=== PATIENT | female | born 1980 | race Caucasian/White ===

== ENCOUNTER → 2016-10-27 | Outpatient (CLI) | payer MEDICAID ==
--- NOTE | 2016-11-03 09:46 | MR ---
EXAMINATION TYPE: MR knee RT wo con DATE OF EXAM: 10/27/2016 4:30 PM COMPARISON: Right knee x-ray October 12, 2016 HISTORY: Rt knee pain x 1-2 months, noticed while running TECHNIQUE: Multiplanar, multisequence imaging of the right knee is performed without IV contrast. FINDINGS: The anterior and posterior cruciate ligaments are intact. The collateral ligaments are intact. Joint spaces are fairly normal. No significant spurring is seen. Bone marrow signal intensity is maintained . Articular cartilage is preserved. There is no sign of a fracture. There is no significant suprapate llar joint effusion. The medial and lateral menisci appear grossly intact. There is some artifact at level of posterior ho rn of medial meniscus believed to be causing some increased signal on sagittal images this is not rep roduced on additional sequences. Extensor ligaments are intact. No popliteal cyst is noted. The remai nder of exam is unremarkable. IMPRESSION: No evidence of ligamentous or meniscal tear. No significant finding is seen to account for patient's symptoms.
== END | disposition home or self-care (01) ==
LOC: RADMRIMAIN 15:46
PROVIDERS: ATTEND Orthopaedic Surgery
DX: M25.561 Pain in right knee (principal)

== ENCOUNTER → 2018-08-22 | Outpatient (CLI) | payer MEDICAID ==
--- NOTE | 2018-08-23 06:02 | MR ---
EXAMINATION TYPE: MR knee RT wo con DATE OF EXAM: 08/22/2018 COMPARISON: Prior right knee MRI October 27, 2016. Outside right knee x-ray August 15, 2018. HISTORY: Rt knee pain per order. TECHNIQUE: Multiplanar, multisequence images of the knee is performed without IV contrast. FINDINGS: MEDIAL MENISCUS: Anterior and posterior horns are intact without tear. LATERAL MENISCUS: Anterior and posterior horns are intact without tear. CRUCIATE LIGAMENTS: The anterior and posterior cruciate ligaments are intact and unremarkable. COLLATERAL LIGAMENTS: The medial collateral ligament and lateral collateral ligament complex are inta ct and unremarkable. EXTENSOR MECHANISM: Visualized quadriceps and patellar tendons are intact. EFFUSION: No significant suprapatellar joint effusion. POPLITEAL CYST: No popliteal/cannon cyst. TRICOMPARTMENT SPACES: Mild narrowing patellofemoral compartment is redemonstrated. No significant s purring is seen. CARTILAGE: No significant chondromalacia patella. Tricompartment articular cartilage is preserved. BONE MARROW SIGNAL: Focal area of heterogeneous diminished T1 and increased T2 signal is seen distal medial femoral condyle central aspect without ossific fragmentation measuring roughly 7 mm transverse ly by 11 mm AP diameter coronal image 15 and sagittal image 12 new from prior. OTHER: No additional significant abnormality is appreciated. IMPRESSION: 1. No meniscal or ligamentous tear is seen. 2. New focal osteochondral injury distal medial femoral condyle without ossific fragmentation.
== END ==
LOC: RADMRIMAIN 15:46
PROVIDERS: ATTEND Orthopaedic Surgery
DX: S79.822A Other specified injuries of left thigh, initial encounter (principal)

== ENCOUNTER 2018-08-28 08:45 | Emergency (ER) | payer MEDICAID ==
[2018-08-28 08:59] VITALS: TEMP 97.6
[2018-08-28] MEDS ORDERED: SODIUM CHLORIDE 0.9% 1,000 ML IV STA ×2 (09:30)
[2018-08-28] MEDS ORDERED: hydrALAZINE HCL 20 MG/ML 1 ML VIAL IVP STA (09:30)
[2018-08-28 09:31] LABS: Glucose,Whole Blood 100 mg/dL (75-99)
[2018-08-28] MEDS ORDERED: ASPIRIN 81 MG PO STA (09:34)
--- NOTE | 2018-08-28 09:36 | ED ---
Dizziness HPI - General Source: patient, RN notes reviewed, old records reviewed Mode of arrival: ambulatory Limitations: no limitations <Yin Ahuja - Last Filed: 08/28/18 10:19> <Conner Argueta - Last Filed: 08/28/18 10:26> - General Chief Complaint: Syncope Stated Complaint: Syncope Time Seen by Provider: 08/28/18 09:02 - History of Present Illness Initial Comments: Patient is a 38-year-old female who presents emergency Department today with complaints of near syncopal episode. 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 Patient reports she was walking to morning meeting when she suddenly felt very dizzy lightheaded. Patient states that she feels very tingly over her lower extremities. She states that her legs felt weak and she was unable to walk. Patient states that she was sat in a wheelchair. Her blood pressure was taken and was noted to be elevated. Patient states she does not have history of high blood pressure. She has no significant past medical history. Patient states that she has no nausea or vomiting. She denies headache. She states that her left side of her face feels slightly tingly in her arms and legs feel somewhat weak. Last known well time was 8:30 AM. Patient states that she has no recent reasons for dehydration including nausea or vomiting. She has normal st ools and normal urination. She states that she is unable to get . (Yin Ahuja) - Related Data Home Medications Medication Instructions Recorded Confirmed Multivitamins, Thera [Multivitamin 1 tab PO DAILY 08/28/18 08/28/18 (formulary)] Omeprazole Magnesium [PriLOSEC OTC] 20 mg PO DAILY 08/28/18 08/28/18 Allergies Allergy/AdvReac Type Severity Reaction Status Date / Time No Known Allergies Allergy Verified 08/28/18 09:18 Review of Systems ROS Other: All systems not noted in ROS Statement are negative. <Yin Ahuja - Last Filed: 08/28/18 10:19> ROS Other: All systems not noted in ROS Statement are negative. <Conner Argueta - Last Filed: 08/28/18 10:26> ROS Statement: Those systems with pertinent positive or pertinent negative responses have been documented in the HPI. Past Medical History Past Medical History: GERD/Reflux History of Any Multi-Drug Resistant Organisms: None Reported Additional Past Surgical History / Comment(s): laparoscopy,hysteroscopy, D & C Past Anesthesia/Blood Transfusion Reactions: No Reported Reaction Past Psychological History: No Psychological Hx Reported Smoking Status: Never smoker Past Alcohol Use History: Occasional Past Drug Use History: None Reported <Yin Ahuja - Last Filed: 08/28/18 10:19> General Exam Limitations: no limitations General appearance: alert, in no apparent distress Head exam: Present: atraumatic, normocephalic, normal inspection Eye exam: Present: normal appearance, PERRL, EOMI. Absent: scleral icterus, conjunctival injection, periorbital swelling ENT exam: Present: normal exam Neck exam: Present: normal inspection. Absent: tenderness, meningismus, lymphadenopathy Respiratory exam: Present: normal lung sounds bilaterally. Absent: respiratory distress, wheezes, rales, rhonchi, stridor Cardiovascular Exam: Present: regular rate, normal rhythm, normal heart sounds. Absent: systolic murmur, diastolic murmur, rubs, gallop, clicks GI/Abdominal exam: Present: soft, normal bowel sounds. Absent: distended, tenderness, guarding, rebound, rigid Extremities exam: Present: normal inspection, full ROM, normal capillary refill. Absent: tenderness, pedal edema, joint swelling, calf tenderness Back exam: Present: normal inspection Neurological exam: Present: alert, oriented X3 Expanded Patient oriented to: Present: person, place, time Speech: Present: fluid speech Cranial nerves: EOM's Intact: Normal, Facial Sensation: Abnormal Left (Reports diminished left sided sensation) Cerebellar function: Heel to Lazo: Normal Upper motor neuron: Pronator Drift: Abnormal Left (Drift noted over Left ) Sensory exam: Upper Extremity Light Touch: Abnormal Left (Reports tingling se nsation), Lower Extremity Light Touch: Abnormal Left (Reports tingling sensation) Motor strength exam: RUE: 5, LUE: 5, RLE: 5, LLE: 4 Eye Response: (4) open spontaneously Motor Response: (6) obeys commands Verbal Response: (5) oriented Rolan Total: 15 Psychiatric exam: Present: normal affect, normal mood Skin exam: Present: warm, dry, intact, normal color. Absent: rash <Yin Ahuja - Last Filed: 08/28/18 10:19> - General Exam Comments Initial Comments: 30-year-old female. Alert and oriented 3. (Yin Ahuja) Course <Yin Ahuja - Last Filed: 08/28/18 10:19> Vital Signs 08/28/18 08/28/18 08/28/18 08:55 09:58 10:06 Temperature 97.6 F Pulse Rate 64 87 80 Respiratory 18 18 16 Rate Blood Pressure 185/78 199/114 183/105 O2 Sat by Pulse 100 98 98 Oximetry - Reevaluation(s) Reevaluation #1: 08/28/18 09:36 Would recognize patient's neurological weakness and deficits I a contacted Dr. Argueta. Patient is evaluated by Dr. Argueta code stroke initiated. (Yin Ahuja) Medical Decision Making - Lab Data Result diagrams: 08/28/18 09:15 08/28/18 09:15 - Radiology Data Radiology results: report reviewed <Yin Ahuja - Last Filed: 08/28/18 10:19> - Lab Data Result diagrams: 08/28/18 09:15 08/28/18 09:15 <Conner Argueta - Last Filed: 08/28/18 10:26> - Medical Decision Making 30-year-old female presents emergency department today with the nursing episode. She states that she felt dizzy lightheaded and her vision turned black. Valerie ent has minimal left-sided facial numbness. Patient states that she has minimal left arm drift and left leg drip. NIH is 2. Patient was initiated is a code stroke and I discussed the case with Dr. Argueta. Patient blood pressure is 185/88. She was given 10 mg of hydralazine. is given aspirin. Lab work was otherwise unremarkable. Patient will be transferred at this time to [facility] due to no neurologist interventions at this time. Dr. Argueta discussed the case with the accepting physician to [facility]. (Yin Ahuja) Patient was reevaluated by myself, Dr. Argueta prior to computed tomography scan. Patient had onset of symptoms at 8:30. Patient does have minimal drift left arm and left leg. NIH score by nursing at 2. Patient was sent for CAT scan a code stroke was called. Case was discussed with Dr. Fuentes with neural interventional. He agrees no TPA. He recommends transfer to [facility]. Case was discussed with Dr. Bolton at [facility], who will accept transfer. (Conner Argueta) - Lab Data Lab Results 08/28/18 08/28/18 08/28/18 Range/Units 09:15 09:15 09:15 WBC 5.6 (3.8-10.6) k/uL RBC 3.99 (3.80-5.40) m/uL Hgb 13.5 (11.4-16.0) gm/dL Hct 40.6 (34.0-46.0) % MCV 101.7 H (80.0-100.0) fL MCH 33.9 (25.0-35.0) pg MCHC 33.3 (31.0-37.0) g/dL RDW 12.0 (11.5-15.5) % Plt Count 307 (150-450) k/uL Neutrophils % 52 % Lymphocytes % 37 % Monocytes % 5 % Eosinophils % 4 % Basophils % 1 % Neutrophils # 2.9 (1.3-7.7) k/uL Lymphocytes # 2.0 (1.0-4.8) k/uL Monocytes # 0.3 (0-1.0) k/uL Eosinophils # 0.2 (0-0.7) k/uL Basophils # 0.1 (0-0.2) k/uL PT 10.8 (9.0-12.0) sec INR 1.0 (<1.2) APTT 26.5 (22.0-30.0) sec Sodium 137 (137-145) mmol/L Potassium 4.3 (3.5-5.1) mmol/L Chloride 104 (98-107) mmol/L Carbon Dioxide 25 (22-30) mmol/L Anion Gap 8 mmol/L BUN 19 H (7-17) mg/dL Creatinine 0.57 (0.52-1.04) mg/dL Est GFR (CKD-EPI)AfAm >90 (>60 ml/min/1.73 sqM) Est GFR (CKD-EPI)NonAf >90 (>60 ml/min/1.73 sqM) Glucose 94 (74-99) mg/dL POC Glucose (mg/dL) (75-99) mg/dL POC Glu Miller Head Wet Process ID Calcium 8.7 (8.4-10.2) mg/dL Total Bilirubin 0.8 (0.2-1.3) mg/dL AST 34 (14-36) U/L ALT 25 (9-52) U/L Alkaline Phosphatase 32 L (38-126) U/L Total Protein 7.6 (6.3-8.2) g/dL Albumin 4.4 (3.5-5.0) g/dL 08/28/18 Range/Units 09:29 WBC (3.8-10.6) k/uL RBC (3.80-5.40) m/uL Hgb (11.4-16.0) gm/dL Hct (34.0-46.0) % MCV (80.0-100.0) fL MCH (25.0-35.0) pg MCHC (31.0-37.0) g/dL RDW (11.5-15.5) % Plt Count (150-450) k/uL Neutrophils % % Lymphocytes % % Monocytes % % Eosinophils % % Basophils % % Neutrophils # (1.3-7.7) k/uL Lymphocytes # (1.0-4.8) k/uL Monocytes # (0-1.0) k/uL Eosinophils # (0-0.7) k/uL Basophils # (0-0.2) k/uL PT (9.0-12.0) sec INR (<1.2) APTT (22.0-30.0) sec Sodium (137-145) mmol/L Potassium (3.5-5.1) mmol/L Chloride (98-107) mmol/L Carbon Dioxide (22-30) mmol/L Anion Gap mmol/L BUN (7-17) mg/dL Creatinine (0.52-1.04) mg/dL Est GFR (CKD-EPI)AfAm (>60 ml/min/1.73 sqM) Est GFR (CKD-EPI)NonAf (>60 ml/min/1.73 sqM) Glucose (74-99) mg/dL POC Glucose (mg/dL) 100 H (75-99) mg/dL POC Glu Miller Head Wet Process ID Susanna [place] Calcium (8.4-10.2) mg/dL Total Bilirubin (0.2-1.3) mg/dL AST (14-36) U/L ALT (9-52) U/L Alkaline Phosphatase (38-126) U/L Total Protein (6.3-8.2) g/dL Albumin (3.5-5.0) g/dL 08/28/18 09:37 EKG performed at 922 shows normal sinus rhythm normal EKG. Ventricular rate 76 bpm. Intervals 126 ms. QS ration 80 ms. QT QTc is 380/436 ms. (Yin Ahuja) - Radiology Data CT of the brain without contrast shows no acute intracranial process at this time. (Yin Ahuja) Critical Care Time Critical Care Time: Yes Total Critical Care Time: 30 <Yin Ahuja - Last Filed: 08/28/18 10:19> Critical Care Time: Total 30 minutes of critical care time completed for initiation code stroke and transfer to intermediate care facility. (Yin Ahuja) Disposition Is patient prescribed a controlled substance at d/c from ED?: No Time of Disposition: 10:23 - Out of Hospital Transfer - Req. Specs Out of Hospital Transfer - Requested Specifics: Other Emergency Center ([facility]) <Yin Ahuja - Last Filed: 08/28/18 10:19> - Out of Hospital Transfer - Req. Specs Out of Hospital Transfer - Requested Specifics: Other Emergency Center <Conner Argueta - Last Filed: 08/28/18 10:26> Clinical Impression: Hypertension, CVA (cerebral vascular accident) Disposition: OTHER INSTITUTION NOT DEFINED Condition: Stable Referrals: Helder Gan DO [Primary Care Provider] - 1-2 days
[2018-08-28 09:50] LABS: Basophils # (A) 0.1 k/uL (0-0.2); Basophils % (A) 1 %; Eosinophils # (A) 0.2 k/uL (0-0.7); Eosinophils % (A) 4 %; HCT 40.6 % (34.0-46.0); HGB 13.5 gm/dL (11.4-16.0); Lymphocytes % (A) 37 %; MCH 33.9 pg (25.0-35.0); MCHC 33.3 g/dL (31.0-37.0); MCV 101.7 fL (80.0-100.0); Mean Platelet Volume 6.6; Monocytes # (A) 0.3 k/uL (0-1.0); Monocytes % (A) 5 %; Neutrophils # (A) 2.9 k/uL (1.3-7.7); Neutrophils % (A) 52 %; Platelet Count 307 k/uL (150-450); RBC 3.99 m/uL (3.80-5.40); WBC 5.6 k/uL (3.8-10.6)
--- NOTE | 2018-08-28 09:57 | CT ---
EXAMINATION TYPE: CT brain wo con DATE OF EXAM: 08/28/2018 COMPARISON: None HISTORY: visual disturbance Unenhanced CT of the brain was performed. The ventricles, basal cisterns and sulci overlying the cerebral convexities demonstrate a normal appe arance. There is no evidence for intracranial hemorrhage or sulcal effacement. No mass effects are seen. Osseous calvarium is intact. If symptoms persist consider MRI as clinically warranted. IMPRESSION: 1. No acute intracranial process is seen at this time.
[2018-08-28 10:00] LABS: Albumin 4.4 g/dL (3.5-5.0); Anion Gap 8 mmol/L; Blood Urea Nitrogen 19 mg/dL (7-17); Calcium 8.7 mg/dL (8.4-10.2); Carbon Dioxide 25 mmol/L (22-30); Chloride 104 mmol/L (98-107); Glucose 94 mg/dL (74-99); Sodium 137 mmol/L (137-145); Total Bilirubin 0.8 mg/dL (0.2-1.3); Total Protein 7.6 g/dL (6.3-8.2)
[2018-08-28 10:05] LABS: ALT 25 U/L (9-52); AST 34 U/L (14-36); Alkaline Phosphatase 32 U/L (38-126); Potassium 4.3 mmol/L (3.5-5.1)
[2018-08-28 10:07] VITALS: RESP 16
[2018-08-28 10:07] LABS: Partial Thromboplastin Time 26.5 sec (22.0-30.0); Prothrombin Time 10.8 sec (9.0-12.0)
--- NOTE | 2018-08-28 10:26 | CT ---
EXAMINATION TYPE: CT angio head neck DATE OF EXAM: 08/28/2018 COMPARISON: None HISTORY: Syncope, visual disturbance, neuro deficits CT DLP: 1127.2 mGycm CONTRAST: Performed with IV Contrast, patient injected with 65 mL of Isovue 370. Combination Contrast CTA cervical carotids and [place] CTA cervical carotids with 3-D recons truction Contrast CTA of the cervical carotids was performed 3-D reconstruction imaging obtained at a separate workstation. Right carotid system: Mild plaque is seen of the right common carotid artery. There is mild plaque a lso noted at the carotid bulb and proximal ICA. No significant diameter reduction. ECA is patent. Right vertebral artery appears unremarkable. Left carotid system: Mild plaque is seen of the left common carotid artery. There is mild plaque als o noted at the carotid bulb and proximal ICA. No significant diameter reduction. ECA is patent. Lef t vertebral artery appears unremarkable. IMPRESSION: 1. No significant diameter reduction to account for the patient's symptoms. CTA [place] with 3-D reconstruction Contrast CTA of the [place] was performed 3-D reconstruction imaging obtained at a separate workstation. Vertebrobasilar system as well as intracranial portions of the internal carotid arteries and their ma carleen tributaries are patent. I do not see evidence for sizable aneurysm or vascular malformation. Pl ease note MRI provides greater sensitivity and specificity. Visualized brain appears grossly unremar kable. IMPRESSION: 1. No significant abnormality.
--- NOTE | 2018-08-28 10:34 | XR ---
EXAMINATION TYPE: XR chest 1V portable DATE OF EXAM: 08/28/2018 COMPARISON: Prior chest x-ray 03/11/2016 HISTORY: Pain TECHNIQUE: Single frontal view of the chest is obtained. FINDINGS: There is no focal air space opacity, pleural effusion, or pneumothorax seen. The cardiac silhouette size is within normal limits. The osseous structures are intact. There are overlying car diac leads. IMPRESSION: No acute process.
[2018-08-28 10:42] LABS: Appearance,Urine Clear (Clear); Bilirubin,Urine Negative (Negative); Blood,Urine Negative (Negative); Color,Urine Colorless; Glucose,Urine (UA) Negative (Negative); Ketones,Urine Negative (Negative); Leukocyte Esterase,Urine Negative (Negative); Nitrite,Urine Negative (Negative); Protein,Urine Negative (Negative); Specific Gravity,Urine 1.014 (1.001-1.035); Urobilinogen,Urine <2.0 mg/dL (<2.0)
[2018-08-28 11:11] VITALS: BP 165/89; PULSE 96
== END 2018-08-28 11:26 | disposition other institution (70) ==
LOC: EC 08:45
DX: I63.9 Cerebral infarction, unspecified (principal); R29.703 NIHSS score 3; I10 Essential (primary) hypertension; K21.9 Gastro-esophageal reflux disease without esophagitis; Z79.899 Other long term (current) drug therapy
CPT/HCPCS: 36415; 93005; 80053; 84484; 85025; 85610; 85730; 81003; 71045; 70496; 70450; 70498; 99291; 96374; 96361; J0360; Q9967

== ENCOUNTER → 2018-09-06 | Outpatient (CLI) | payer MEDICAID ==
--- NOTE | 2018-09-08 08:47 | EEG ---
ELECTROENCEPHALOGRAM REPORT PROCEDURE DATE: 09/06/2018. ELECTROENCEPHALOGRAM (EEG) REPORT: TECHNIQUE: A routine 18 channel EEG was performed with video using the 10/20 international placement system. HISTORY: Dizzy, blurred vision, disorientation. Blood pressure markedly elevated. CURRENT MEDICATIONS: Nexium, atorvastatin, multivitamin, aspirin. STUDY DURATION: 26 minutes. FINDINGS: BACKGROUND: The background activity consists of 8-9 hertz rhythmic waveforms symmetrically seen over both posterior quadrants. ACTIVATION: HYPERVENTILATION: Induced physiological slowing. PHOTIC STIMULATION: Symmetric driving seen. SLEEP: Drowsy. ABNORMALITIES: On rare occasion (four instances), low-voltage sharp waves were seen over the left frontotemporal region with adequate potentiality, F7-T3. IMPRESSION: Potentially abnormal EEG. The reason this EEG is listed as potentially abnormal is that on rare occasion sharp waves were seen over the left frontotemporal region. These findings can be seen with the presence of an epileptiform focus involving the corresponding region. No seizures were recorded. Clinical correlation is recommended. MMODL / IJN: [id number] /
== END | disposition home or self-care (01) ==
LOC: NEUROMAIN 11:06
PROVIDERS: ATTEND Psychiatry & Neurology Neurology
DX: R94.01 Abnormal electroencephalogram [EEG] (principal); R56.9 Unspecified convulsions
CPT/HCPCS: 95816

== ENCOUNTER → 2018-09-08 | Outpatient (CLI) | payer MEDICAID ==
--- NOTE | 2018-09-08 11:54 | MR ---
EXAMINATION TYPE: MR brain wo/w con DATE OF EXAM: 09/08/2018 COMPARISON: MR brain from outside institution 08/28/2017 HISTORY: arachnoid cyst TECHNIQUE: Multiplanar, multisequence images of the brain and brainstem is performed without and with IV contras t, utilizing 5 mL intravenous Gadavist . FINDINGS: Diffusion weighted images demonstrate no evidence of a recent infarct or other diffusion ab normality. The mild prominence of cerebrospinal fluid signal adjacent to the brainstem to the left o f midline anterior aspect of the left cerebellar hemisphere is stable, findings likely represent smal l arachnoid cyst versus developmental abnormality as previously described. There is no significant wh ite matter signal abnormality. The ventricular system and cisternal spaces are normal in size and ap pearance. The brain volume is age appropriate. Midline structures demonstrate normal morphology. The craniocervical junction appears within normal limits. Post contrast images demonstrate no abnormal enhancement. The dural venous sinuses appear pa tent. The visualized sinuses are clear and the globes are intact. Mastoid air cells again show inflam matory change. IMPRESSION: Stable exam. No acute brain abnormality. Probable arachnoid cyst as described. Inflammato ry change left mastoid air cells
== END ==
LOC: RADMRIMAIN 09:54
PROVIDERS: ATTEND Psychiatry & Neurology Neurology
DX: R94.02 Abnormal brain scan (principal)
CPT/HCPCS: 70553; A9585

== ENCOUNTER → 2018-12-27 | Outpatient (CLI) | payer MEDICAID ==
[2018-12-27 17:47] LABS: Anion Gap 9.3 mmol/L (4.00-12.00); BUN/Creat Ratio 18.89 Ratio (12.00-20.00); Calcium 9.3 mg/dL (8.7-10.3); Carbon Dioxide 24.7 mmol/L (21.6-31.8); LDL Cholesterol,Calculated 68.6 mg/dL (0.0-131.0); VLDL Calculation 10.4 mg/dL (5.00-40.00)
== END | disposition home or self-care (01) ==
LOC: LABWHC1 08:05
PROVIDERS: ATTEND Internal Medicine
DX: I10 Essential (primary) hypertension (principal); E78.5 Hyperlipidemia, unspecified
CPT/HCPCS: 36415; 80048; 80061

== ENCOUNTER → 2020-04-23 | Outpatient (CLI) | payer MEDICAID ==
--- NOTE | 2020-04-23 11:46 | MR ---
EXAMINATION TYPE: MR knee RT wo con DATE OF EXAM: 04/23/2020 COMPARISON: Prior MRI right knee August 22, 2018 and older study 2017 HISTORY: R knee pain TECHNIQUE: Multiplanar, multisequence imaging of the right knee is performed without IV contrast. FINDINGS: MEDIAL MENISCUS: Posterior horn shows oblique faint signal seen best sagittal image 9 with some frayi ng of the posterior margin of the posterior horn, this appears to extend to inferior articular surfac e consistent suspicious for oblique full-thickness tear. Anterior horn is intact. LATERAL MENISCUS: Anterior and posterior horns are intact without tear. CRUCIATE LIGAMENTS: The anterior and posterior cruciate ligaments are intact and unremarkable. COLLATERAL LIGAMENTS: The medial collateral ligament and lateral collateral ligament complex are inta ct and unremarkable. EXTENSOR MECHANISM: Visualized quadriceps and patellar tendons are intact. EFFUSION: No significant suprapatellar joint effusion. POPLITEAL CYST: No popliteal/cannon cyst. TRICOMPARTMENT SPACES: Tricompartmental joint spaces are preserved. No significant spurring. CARTILAGE: Tricompartment articular cartilage maintained. BONE MARROW SIGNAL: Interval resolution of the small focus of diminished T1 and increased T2 signal c entered in the slight lateral central aspect of the distal medial femoral condyle at the articular pearce rface. Finding likely reflects resolved bone marrow subchondral edema or contusion injury. OTHER: No additional significant abnormality is appreciated. IMPRESSION: New subtle full-thickness oblique tear in the posterior horn medial meniscus otherwise fa irly unremarkable study. Case discussed with orthopedic surgeon at time of dictation.
== END | disposition home or self-care (01) ==
LOC: RADMRIMAIN 06:10
PROVIDERS: ATTEND Orthopaedic Surgery
DX: S83.241A Other tear of medial meniscus, current injury, right knee, initial encounter (principal)

== ENCOUNTER 2020-04-30 08:16 | Day surgery (SDC) | payer MEDICAID ==
[2020-04-29 15:38] VITALS: BMI 22.4
--- NOTE | 2020-04-29 16:49 | HP ---
HISTORY AND PHYSICAL DATE OF SURGERY: 04/30/2020 Renee Syed is a 39-year-old patient seen with progressive right knee pain, consistent with symptomatic meniscal tear. We discussed options for treatment, she elected to proceed with right knee arthroscopy. Consent regarding the procedure was obtained. PAST MEDICAL HISTORY: Gastroesophageal reflux disease, hypertension. PAST SURGICAL HISTORY: D and C, hysteroscopy, laparoscopy. DAILY MEDICATIONS: Nexium, amlodipine, aspirin. ALLERGIES: None. SOCIAL HISTORY: She denies current tobacco use. PHYSICAL EVALUATION OF THE RIGHT KNEE: Range of motion is 0-130. There is a mild effusion present. She is tender along the medial joint line, positive medial Paris's. Her ligaments are stable. Hip rotation is without pain. Distal neurovascular exam is intact. RADIOGRAPHS OF THE RIGHT KNEE: Revealed mild osteoarthritic changes. MRI of the right knee revealed a medial meniscal tear. IMPRESSION: 1. Internal derangement, right knee with medial meniscal tear. 2. Hypertension. 3. Gastroesophageal reflux disease. PLAN: Right knee arthroscopy with partial meniscectomy and debridement. MMODL / IJN: [id number] /
[~2020-04-30 08:16] MED LIST: LIDOCAINE 1% (10MG/ML) FOR IV START INTRADERMA PRN
[2020-04-30] MEDS ORDERED: ONDANSETRON 4 MG/2 ML VIAL ONE (08:49)
[2020-04-30] MEDS ORDERED: LIDOCAINE 1% (10MG/ML) FOR IV START INTRADERMA ONE (08:50)
[2020-04-30] MEDS ORDERED: MIDAZOLAM 2 MG/2 ML VIAL IV ONE (09:00)
[2020-04-30] MEDS: LACTATED RINGERS 1,000 ML IV SCH ×2 (09:00→12:11)
[2020-04-30] MEDS ORDERED: DEXAMETHASONE SOD PHOSPHATE 4 MG/ML 1 ML VIAL IV ONE (09:01)
[2020-04-30 09:04] LABS: Basophils # (A) 0.1 k/uL (0-0.2); Basophils % (A) 1 %; Eosinophils # (A) 0.2 k/uL (0-0.7); Eosinophils % (A) 3 %; HCT 39.7 % (34.0-46.0); HGB 13.8 gm/dL (11.4-16.0); Lymphocytes # (A) 1.4 k/uL (1.0-4.8); Lymphocytes % (A) 28 %; MCH 34.8 pg (25.0-35.0); MCHC 34.7 g/dL (31.0-37.0); MCV 100.3 fL (80.0-100.0); Mean Platelet Volume 6.9; Monocytes # (A) 0.2 k/uL (0-1.0); Monocytes % (A) 4 %; Neutrophils % (A) 61 %; Platelet Count 266 k/uL (150-450); RBC 3.96 m/uL (3.80-5.40); RDW 11.5 % (11.5-15.5)
[2020-04-30] MEDS ORDERED: BUPIVACAINE (PF) 0.25% 30 ML VIAL SQ ONE ×2 (09:17→10:03)
[2020-04-30] MEDS ORDERED: MIDAZOLAM 2 MG/2 ML VIAL ONE (09:24)
[2020-04-30] MEDS ORDERED: fentaNYL (PF) 50 MCG/ML 2 ML AMP ONE (09:24)
[2020-04-30] MEDS ORDERED: KETOROLAC 15 MG/ML 1 ML VIAL ONE (09:24)
[2020-04-30] MEDS ORDERED: PROPOFOL 10 MG/ML 20 ML VIAL IV ONE (09:24)
[2020-04-30] MEDS ORDERED: LIDOCAINE 1% INJ 10MG/ML (20 ML MDV) ONE (09:24)
[2020-04-30] MEDS ORDERED: SUCCINYLCHOLINE CHLORIDE 100 MG/5 ML SYR IV ONE (09:24)
--- NOTE | 2020-04-30 10:25 | P.OP ---
Date of Procedure: 04/30/20 Preoperative Diagnosis: Internal derangement right knee Postoperative Diagnosis: 1. Tear medial meniscus right knee 2. Grade 3/4 chondromalacia medial femoral condyle right knee 3. Reactive synovitis medial, lateral and suprapatellar compartments right knee Procedure(s) Performed: 1. Arthroscopic partial medial meniscectomy right knee 2. Arthroscopic chondroplasty medial femoral condyle right knee 3. Arthroscopic microfracture medial femoral condyle right knee 4. Arthroscopic partial synovectomy medial, lateral and suprapatellar compartments right knee Anesthesia: MARISAA, local Surgeon: Bong Mccullough Estimated Blood Loss (ml): 7 Pathology: none sent Condition: stable Disposition: PACU Indications for Procedure: 39-year-old patient seen with right knee pain. After treatment options were discussed with her, she elected to proceed with arthroscopy. Operative Findings: See description of procedure Description of Procedure: Patient was taken to the operative suite. Patient underwent a general anesthetic by the department of anesthesia. Patient was given preoperative antibiotics. The right lower extremity was placed in a well-padded arthroscopic leg jeffers. The right leg was prepped and draped in the normal sterile orthopedic fashion. A lateral parapatellar and suprapatellar incision was made. Trochars were inserted. Arthroscopy was initiated. Suprapatellar pouch revealed diffuse thick reactive synovitis. The patellofemoral joint appeared to articulate congruently. There as grade 1 chondromalacia of the patella diffusely with no osteochondral tears present. The scope was guided into the medial gutter. No loose bodies or plica were identified. The scope was then guided into the medial compartment. A medial parapatellar incision was made. Trocar inserted followed by probe. There was a radial tear as well as a cleavage tear involving the posterior horn medial meniscus. There were areas of grade 3/4 chondromalacia weightbearing surface medial femoral condyle with osteochondral flap tears present. There was thick reactive synovitis anteriorly. I performed a partial medial meniscectomy getting down to stable meniscal tissue. I performed a chondroplasty of the medial femoral condyle getting down to stable osteochondral tissue. I performed a partial synovectomy decompressing the reactive synovitis anteriorly. The residual meniscus was probed and found to be stable. There was good decompression synovitis. The residual osteochondral surface of the medial femoral condyle was probed and found be stable. There was a central area of exposed bone. I introduced a roseanna rofracture awl perform a microfracture to that area Scope and probe were then guided into the intercondylar notch. Cruciates were identified, probed and found to be stable. The scope and probe were then guided into lateral compartment. The lateral meniscus was probed and found to be stable. There was some mild grade 1 chondromalacia diffusely about the lateral compartment. There was thick reactive synovitis anteriorly. I introduced a motorized shaver and performed a partial synovectomy. There was good decompression synovitis. The scope was in guided back into the suprapatellar compartment. I introduced a motorized shaver into the super patellar compartment. I debrided some piecemeal fragments of meniscus I encountered. I performed a partial synovectomy. Shaver was removed. There was good decompression synovitis. I took one more look on the entire knee, no residual debris. Instruments were now removed from the joint. The joint was infiltrated with .25% Marcaine. Steri-Strips were applied to the portal sites. Sterile dressings were applied. The patient was placed into a MARTIN hose. No tourniquet was utilized. The patient was awakened, transferred to a bed and taken to recovery stable satisfactory condition.
[2020-04-30 10:28] VITALS: TEMP 96.8
[2020-04-30] MEDS ORDERED: HYDROcodone/APAP 5-325MG 1 EACH TAB ONE (12:02)
[2020-04-30] MEDS ORDERED: HYDROcodone/APAP 5-325MG 1 EACH TAB PO ONE (12:07)
[2020-04-30 13:19] VITALS: BP 130/80; PULSE 66; RESP 18
== END 2020-04-30 13:05 | disposition home or self-care (01) ==
LOC: OR 08:16
PROVIDERS: ATTEND Orthopaedic Surgery
DX: M23.221 Derangement of posterior horn of medial meniscus due to old tear or injury, right knee (principal); M94.261 Chondromalacia, right knee; M65.861 Other synovitis and tenosynovitis, right lower leg; M22.41 Chondromalacia patellae, right knee; M17.11 Unilateral primary osteoarthritis, right knee; K21.9 Gastro-esophageal reflux disease without esophagitis; I10 Essential (primary) hypertension; Z98.890 Other specified postprocedural states; Z79.899 Other long term (current) drug therapy; Z79.82 Long term (current) use of aspirin; Z79.1 Long term (current) use of non-steroidal anti-inflammatories (NSAID)
CPT/HCPCS: 81025; 80051; 85025; 29881; 29879; J2250; J1100; J2405; J0690; J2001; J3010; J1885; J0330; J2704

== ENCOUNTER → 2021-09-23 | Outpatient (CLI) | payer MEDICAID ==
--- NOTE | 2021-09-25 10:55 | MM ---
Reason for exam: screening (asymptomatic). Baseline mammogram. Physical Findings: A clinical breast exam by your physician is recommended on an annual basis and results should be correlated with mammographic findings. MG 3D Screening Mammo W/Cad Bilateral CC and MLO view(s) were taken. The breast tissue is heterogeneously dense. This may lower the sensitivity of mammography. There is no discrete abnormality. Some benign regional punctate calcifications medial left breast. ASSESSMENT: Benign, BI-RAD 2 RECOMMENDATION: Routine screening mammogram of both breasts in 1 year. Patient should continue monthly self breast exams. A negative report should not preclude additional follow up of suspicious palpable abnormalities.
== END | disposition home or self-care (01) ==
LOC: RADMAMWWP 07:19
PROVIDERS: ATTEND Obstetrics & Gynecology
DX: Z12.31 Encounter for screening mammogram for malignant neoplasm of breast (principal)
CPT/HCPCS: 77063; 77067

== ENCOUNTER → 2021-09-30 | Outpatient (CLI) | payer MEDICAID ==
[2021-09-30 08:16] LABS: Appearance,Urine Cloudy (Clear); Bacteria,Urine Occasional /hpf; Bilirubin,Urine Negative (Negative); Blood,Urine Negative (Negative); Color,Urine Yellow; Glucose,Urine (UA) Negative (Negative); Ketones,Urine Negative (Negative); Leukocyte Esterase,Urine Negative (Negative); Mucus,Urine Many /hpf; Nitrite,Urine Negative (Negative); PH, Urine 5.5 (5.0-8.0); Protein,Urine Negative (Negative); RBC,Urine 1 /hpf (0-5); Specific Gravity,Urine 1.019 (1.001-1.035); Squamous Epithelial Cell,Urine 10 /hpf (0-4); Urobilinogen,Urine <2.0 mg/dL (<2.0); WBC,Urine 2 /hpf (0-5)
[2021-09-30 10:45] LABS: HCT 36.3 % (37.2-46.3); HGB 11.8 g/dL (12.0-15.0); MCH 33.1 pg (27.0-32.0); MCHC 32.5 g/dL (32.0-37.0); Mean Platelet Volume 9.7 fL (9.5-12.2); NRBC Per 100 WBC 0 /100 WBCS (0.0-0.0); Platelet Count 253 X 10*3/uL (140-440); RBC 3.56 X 10*6/uL (4.10-5.20); RDW 11.7 % (11.5-14.5); WBC 4.65 X 10*3/uL (4.50-10.00)
[2021-09-30 11:02] LABS: ALT 10 U/L (8-44); AST 24 U/L (13-35); African American GFR (CKD) 125.9 (60.0-200.0); Albumin 4.3 g/dL (3.8-4.9); Albumin/Globulin Ratio 1.72 (1.60-3.17); Alkaline Phosphatase 32 U/L (41-126); BUN/Creat Ratio 18.94 Ratio (12.00-20.00); Blood Urea Nitrogen 12.9 mg/dL (9.0-27.0); Calcium 8.8 mg/dL (8.7-10.3); Carbon Dioxide 25.3 mmol/L (20.0-27.5); Chloride 103 mmol/L (96-109); Chol/HDL Ratio 2.27 Ratio; Globulin 2.5 g/dL (1.6-3.3); Glucose 99 mg/dL (70-110); LDL Cholesterol,Calculated 78.2 mg/dL (0.0-131.0); Non-African American GFR(CKD) 108.6 (60.0-200.0); Potassium 3.7 mmol/L (3.5-5.5); Sodium 138 mmol/L (135-145); Total Protein 6.8 g/dL (6.2-8.2); VLDL Calculation 10.88 mg/dL (5.00-40.00)
== END | disposition home or self-care (01) ==
LOC: LABWHC1 07:10
PROVIDERS: ATTEND Internal Medicine
DX: I10 Essential (primary) hypertension (principal); E78.5 Hyperlipidemia, unspecified
CPT/HCPCS: 36415; 80053; 80061; 81001; 82088; 83835; 84244; 84443; 85027

== ENCOUNTER → 2021-10-05 | Outpatient (CLI) | payer MEDICAID ==
[2021-10-05 11:02] LABS: C Reactive Protein <0.30 mg/dL (0.00-0.80); Creatine Kinase 38 U/L (26-186)
[2021-10-05 11:11] LABS: Rheumatoid Factor, Qnt <10 IU/mL (0-15)
[2021-10-05 15:34] LABS: Cyclic Citrull Pep IgG Unit <0.5 U/mL; Cyclic Citrullinated Pep IgG NEGATIVE (NEGATIVE)
[2021-10-06 11:27] LABS: Angiotensin-1 Converting Enz. 5 U/L (8-52)
[2021-10-06 14:30] LABS: HLA B27 NEGATIVE
== END | disposition home or self-care (01) ==
LOC: LABWHC1 07:09
PROVIDERS: ATTEND Internal Medicine Rheumatology
DX: M13.0 Polyarthritis, unspecified (principal)
CPT/HCPCS: 36415; 82164; 82306; 82550; 83520; 84439; 84443; 84550; 85652; 86038; 86140; 86200; 86431; 86812

== ENCOUNTER → 2021-10-06 | Outpatient (CLI) | payer MEDICAID ==
--- NOTE | 2021-10-06 10:40 | XR ---
EXAM TYPE: LUMBAR SPINE X RAY SERIES COMPARISON: NONE HISTORY: Pain TECHNIQUE: 4 views are submitted. FINDINGS: Alignment is anatomic. The pedicles are intact. The transverse processes are intact. There is L5 b ilateral spondylolysis with grade 1 spondylolisthesis. IMPRESSION: 1. Bilateral spondylolysis L5 with grade 1 anterolisthesis. Suspect foraminal encroachment consider f ollow-up MRI.
--- NOTE | 2021-10-06 10:44 | XR ---
EXAMINATION TYPE: XR Hip Bilateral and AP pelvis DATE OF EXAM: 10/06/2021 COMPARISON: NONE HISTORY: Pain TECHNIQUE: A single AP view of the pelvis is obtained. Two views of the bilateral hip are obtained. FINDINGS: There is no acute fracture/dislocation evident in the pelvis. There is hypertrophic change of the acetabulum bilaterally. There is a faint calcification adjacent to the lateral margin the rig ht acetabulum which can be associated with chronic acetabular labral tear. SI joints symmetric. No evidence of erosive change or narrowing. No acute fracture or dislocation. No erosive changes. Mineralization maintained. IMPRESSION: 1. Acetabular hypertrophy correlate for femoral acetabular impingement. 2. Joint spaces preserved with no erosive changes. 3. Correlate for chronic right-sided acetabular labral tear.
--- NOTE | 2021-10-06 10:45 | XR ---
EXAMINATION TYPE: XR cervical spine comp DATE OF EXAM: 10/06/2021 COMPARISON: NONE HISTORY: Pain TECHNIQUE: Four views are submitted. FINDINGS: The odontoid is intact. There are no compression deformities. The prevertebral soft tissue structur es are within normal limits. Severe degenerative disc disease C6-C7 with moderate to severe changes C5-C6. Anterior spurring and posterior spondylosis at both levels. There is a grade 1 anterolisthesis of C4 relative to C5. Foraminal encroachment C5-6 and C6-C7 bilaterally. IMPRESSION: 1. Moderate to severe degenerative disc disease C5-C6 and C6-C7. Suspect foraminal encroachment parti cularly at C5-C6. 2. Grade 1 anterolisthesis C4 on C5.
--- NOTE | 2021-10-06 10:47 | XR ---
EXAMINATION TYPE: XR hand complete bilateral DATE OF EXAM: 10/06/2021 COMPARISON: NONE HISTORY: Pain TECHNIQUE: Three views are submitted. FINDINGS: The osseous structures are intact. There is no acute fracture or dislocation. Mineralization is normal. Mild narrowing of the joint on the right. There are no erosive changes. Tin y 1 mm punctate density adjacent first carpal metacarpal joint right and first digit. IMPRESSION: 1. No definite acute fracture or dislocation if symptoms persist, follow-up study in 7 to 10 days wo uld be suggested. 2. No erosive changes. There is mild arthropathy of the right first MCP joint. 3 punctate 1 mm densit y adjacent first carpal metacarpal joint in the right hand is too small characterize. Could be on the basis of previous trauma. Correlate with point tenderness.
== END | disposition home or self-care (01) ==
LOC: RADXRMAIN 09:36
PROVIDERS: ATTEND Internal Medicine Rheumatology
DX: M47.896 Other spondylosis, lumbar region (principal); M54.12 Radiculopathy, cervical region; M25.559 Pain in unspecified hip; M19.049 Primary osteoarthritis, unspecified hand
CPT/HCPCS: 72050; 72110; 73521

== ENCOUNTER → 2021-10-07 | Outpatient (CLI) | payer MEDICAID ==
[2021-10-07 11:02] LABS: Ferritin 28.6 ng/mL (10.0-291.0)
[2021-10-07 11:15] LABS: % Iron Saturation 26.07 (12.00-45.00)
== END | disposition home or self-care (01) ==
LOC: LABWHC1 08:17
PROVIDERS: ATTEND Internal Medicine
DX: I10 Essential (primary) hypertension (principal); D64.9 Anemia, unspecified
CPT/HCPCS: 36415; 82607; 82728; 82746; 83540; 83550; 83835

== ENCOUNTER → 2021-10-20 | Outpatient (CLI) | payer MEDICAID ==
--- NOTE | 2021-10-20 08:33 | US ---
EXAMINATION TYPE: US renal artery duplex complete DATE OF EXAM: 10/20/2021 COMPARISON: NONE CLINICAL HISTORY: I10 HYPERTENSION. HTN since 2019 MEASUREMENTS: RENAL SIZE: Rt Kidney: 9.2 x 3.8 x 3.9cm Lt Kidney: 9.1 x 4.9 x 4.1cm RESISTANCE INDEX Right: 0.66 Left: 0.65 RA/AO RATIO (< 3.5 ) Right: 1.6 Left: 1.5 RA VELOCITY ( < 180 cm/s) Right: 187.1cm/s Left: 171.6cm/s Limitations due to overlying bowel content. aorta and renals appear unremarkable. right renal artery velocities appears slightly elevated. Slightly suboptimal study. Kidney size is symmetric and measure lower limits of normal. No hydronephr osis seen bilaterally. Satisfactory phasicity and resistive indices in the bilateral renal arteries. Slight increased velocity in the right renal artery but there is increased velocity noted in the aort a. Findings favored product of uncontrolled hypertension. IMPRESSION: Slightly suboptimal study, no focal hemodynamically significant stenosis in either renal artery clearly identified.
== END | disposition home or self-care (01) ==
LOC: RADUSWWP 07:00
PROVIDERS: ATTEND Internal Medicine
DX: I10 Essential (primary) hypertension (principal)
CPT/HCPCS: 93975

== ENCOUNTER 2022-01-04 10:25 | Inpatient (IN) | payer MEDICAID ==
--- NOTE | 2022-01-04 10:56 | ED ---
Neuro HPI - General Chief Complaint: Neuro Symptoms/Deficit Stated Complaint: LT leg weakness Time Seen by Provider: 01/04/22 10:42 Source: patient, RN notes reviewed Mode of arrival: ambulatory Limitations: no limitations - History of Present Illness Is the patient presenting with stroke symptoms?: Yes Last Known Well Date: 01/04/22 Last Known Well Time: 07:00 Initial Comments: She is a 41-year-old female presents the emergency room at the direction of the spinal surgeons she was at work today in the OR suite when she reports that she has had worsening left limb weakness and notable foot drop with difficulty in ambulating. 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 She is currently taking blood pressure medication but denies any blood thinners including the use of aspirin. She denies any generalized symptoms, fevers, chills, shortness of breath, chest pain, headache or dizziness. In addition to her CVA/TIA and hypertension history she also has a history of GERD. With the exception of her left lower limb symptoms she denies any other complaints or concerns at this time. - Related Data Home Medications: Home Medications Medication Instructions Recorded Confirmed Esomeprazole Magnesium [NexIUM] 20 mg PO HS 04/29/20 04/30/20 Ibuprofen 400 mg PO DAILY PRN 04/29/20 04/30/20 Naproxen Sodium [Aleve] 220 mg PO BID PRN 04/29/20 04/30/20 amLODIPine BESYLATE/BENAZEPRIL 1 each PO HS 04/29/20 04/30/20 [amLODIPine BESYLATE/BENAZEPRIL 5-10 MG] Previous Rx's Medication Instructions Recorded Hydrocodone/Acetaminophen [[place] 1 each PO Q6HR PRN #28 tab 04/30/20 5-325] Allergies/Adverse Reactions: Allergies Allergy/AdvReac Type Severity Reaction Status Date / Time No Known Allergies Allergy Verified 01/04/22 10:39 Review of Systems ROS Statement: Those systems with pertinent positive or pertinent negative responses have been documented in the HPI. ROS Other: All systems not noted in ROS Statement are negative. General Exam Limitations: no limitations General appearance: alert, in no apparent distress Head exam: Present: atraumatic, normocephalic, normal inspection Eye exam: Present: normal appearance, PERRL, EOMI. Absent: scleral icterus, conjunctival injection, periorbital swelling ENT exam: Present: normal exam, mucous membranes moist Neck exam: Present: normal inspection. Absent: tenderness, meningismus, lymphadenopathy Respiratory exam: Absent: respiratory distress, accessory muscle use Extremities exam: Present: normal capillary refill. Absent: pedal edema, joint swelling Back exam: Present: normal inspection Neurological exam: Present: alert, oriented X3 Expanded Patient oriented to: Present: person, place, time Speech: Present: fluid speech Cranial nerves: EOM's Intact: Normal, Gag Reflex: Normal, Tongue Deviation: Normal, Nystagmus: Normal, Facial Sensation: Normal, Facial Palsy with Forehead Movement: Normal, Facial Palsy without Forehead Movement: Normal Cerebellar function: Finger to Nose: Normal, Heel to Lazo: Abnormal Left Motor strength exam: RUE: 5, LUE: 4, RLE: 5, LLE: 3 Eye Response: (4) open spontaneously Motor Response: (6) obeys commands Verbal Response: (5) oriented [place] Total: 15 Psychiatric exam: Present: normal affect, normal mood Skin exam: Present: warm, dry, intact, normal color. Absent: rash Stroke MDM - Lab Data Result diagrams: 01/04/22 11:02 01/04/22 11:02 Lab Results 01/04/22 01/04/22 01/04/22 Range/Units 10:55 11:02 11:02 WBC 5.5 (3.8-10.6) k/uL RBC 3.85 (3.80-5.40) m/uL Hgb 13.4 (11.4-16.0) gm/dL Hct 39.5 (34.0-46.0) % MCV 102.5 H (80.0-100.0) fL MCH 34.8 (25.0-35.0) pg MCHC 33.9 (31.0-37.0) g/dL RDW 12.4 (11.5-15.5) % Plt Count 306 (150-450) k/uL MPV 7.1 Neutrophils % 61 % Lymphocytes % 29 % Monocytes % 4 % Eosinophils % 3 % Basophils % 1 % Neutrophils # 3.4 (1.3-7.7) k/uL Lymphocytes # 1.6 (1.0-4.8) k/uL Monocytes # 0.2 (0-1.0) k/uL Eosinophils # 0.2 (0-0.7) k/uL Basophils # 0.1 (0-0.2) k/uL Macrocytosis Slight PT 10.4 (9.0-12.0) sec INR 1.0 (<1.2) APTT 21.5 L (22.0-30.0) sec Sodium (137-145) mmol/L Potassium (3.5-5.1) mmol/L Chloride (98-107) mmol/L Carbon Dioxide (22-30) mmol/L Anion Gap mmol/L BUN (7-17) mg/dL Creatinine (0.52-1.04) mg/dL Est GFR (CKD-EPI)AfAm (>60 ml/min/1.73 sqM) Est GFR (CKD-EPI)NonAf (>60 ml/min/1.73 sqM) Glucose (74-99) mg/dL POC Glucose (mg/dL) 108 (70-110) mg/dL POC Glu Broke Beater ID Duncan Rayan Calcium (8.4-10.2) mg/dL Total Bilirubin (0.2-1.3) mg/dL AST (14-36) U/L ALT (4-34) U/L Alkaline Phosphatase (38-126) U/L Total Protein (6.3-8.2) g/dL Albumin (3.5-5.0) g/dL 01/04/22 Range/Units 11:02 WBC (3.8-10.6) k/uL RBC (3.80-5.40) m/uL Hgb (11.4-16.0) gm/dL Hct (34.0-46.0) % MCV (80.0-100.0) fL MCH (25.0-35.0) pg MCHC (31.0-37.0) g/dL RDW (11.5-15.5) % Plt Count (150-450) k/uL MPV Neutrophils % % Lymphocytes % % Monocytes % % Eosinophils % % Basophils % % Neutrophils # (1.3-7.7) k/uL Lymphocytes # (1.0-4.8) k/uL Monocytes # (0-1.0) k/uL Eosinophils # (0-0.7) k/uL Basophils # (0-0.2) k/uL Macrocytosis PT (9.0-12.0) sec INR (<1.2) APTT (22.0-30.0) sec Sodium 137 (137-145) mmol/L Potassium 3.9 (3.5-5.1) mmol/L Chloride 106 (98-107) mmol/L Carbon Dioxide 24 (22-30) mmol/L Anion Gap 7 mmol/L BUN 20 H (7-17) mg/dL Creatinine 0.66 (0.52-1.04) mg/dL Est GFR (CKD-EPI)AfAm >90 (>60 ml/min/1.73 sqM) Est GFR (CKD-EPI)NonAf >90 (>60 ml/min/1.73 sqM) Glucose 107 H (74-99) mg/dL POC Glucose (mg/dL) (70-110) mg/dL POC Glu Broke Beater ID Calcium 9.1 (8.4-10.2) mg/dL Total Bilirubin 0.5 (0.2-1.3) mg/dL AST 26 (14-36) U/L ALT 12 (4-34) U/L Alkaline Phosphatase 50 (38-126) U/L Total Protein 7.8 (6.3-8.2) g/dL Albumin 4.8 (3.5-5.0) g/dL - NIH Stroke Scale 1a. Level of Consciousness: (0) alert 1b. LOC Questions: (0) answers correctly 1c. LOC Commands: (0) performs tasks correctly 2. Best Gaze: (0) normal 3. Visual: (0) no visual loss 4. Facial Palsy: (0) normal symmetrical movement 5a. Motor Arm Left: (0) no drift 5b. Motor Arm Right: (0) no drift 6a. Motor Leg Left: (2) some gravity effort 6b. Motor Leg Right: (0) no drift 7. Limb Ataxia: (1) present 1 limb 8. Sensory: (1) mild/moderate sensory loss 9. Best Language: (0) no aphasia 10. Dysarthria: (0) normal 11. Extinction/Inattention: (0) no abnormality - Thrombolytic Inclusion/Exclusion Thrombolytic Inclusion Criteria: Symptom Onset < 4.5 h, NIH Stroke Scale Deficit, Age 18 or Older, Glucose of 50-400mg/dl - Medical Decision Making Known CVA/TIA history with new onset of left-sided weakness at 7 AM today. High probability for stroke. Known onset of symptoms at 0700, Code alteplase called at 1051. CBC CMP PT/INR and UA ordered along with CT of brain without contrast for TPA protocol and CTA of brain and neck for Code stroke protocol. CTA head and neck shows no evidence of dissection of cervical internal carotid arteries or vertebral arteries are any evidence of significant stenosis at the carotid bifurcation. No evidence of high-grade stenosis and intracranial aneurysm. CT of the brain without contrast shows no acute intracranial processes. Lab stable Case discussed with Dr. Narvaez from [facility] advised no need for alteplase recommends admission for observation and neurology follow-up. Case discussed with Dr. Lofton from [facility] for admission for observation along with Dr. Anderson. IV fluids and aspirin 324mg administered. Left lower extremity symptoms persist without worsening or improvement. Will place observation admission orders. - Radiology Data Radiology results: report reviewed, image reviewed CT brain without contrast shows no acute processes. CTA head and neck impression no evidence of dissection of the cervical and terminal carotid arteries or vertebral arteries or any evidence of significant stenosis at the carotid bifurcation. No evidence of high-grade stenosis or intracranial aneurysm. Sinus rhythm, ventricular rate 70 bpm, NV interval 124 ms, QRS duration 86 ms, QT/QTC 387/408 ms, PRT axes 73, 66, 45. Past Medical History Past Medical History: CVA/TIA, GERD/Reflux, Hypertension Additional Past Medical History / Comment(s): "rt knee pain and it feels like it is going to give out", hx acute CVA 2019-no residual History of Any Multi-Drug Resistant Organisms: None Reported Additional Past Surgical History / Comment(s): laparoscopy,hysteroscopy, D & C Past Anesthesia/Blood Transfusion Reactions: No Reported Reaction Past Psychological History: No Psychological Hx Reported Smoking Status: Never smoker - Past Family History Mother Family Medical History: No Reported History Course Vital Signs 01/04/22 01/04/22 01/04/22 10:34 11:15 11:30 Temperature 98.1 F Pulse Rate 72 71 69 Respiratory 20 18 18 Rate Blood Pressure 140/85 132/84 123/80 O2 Sat by Pulse 100 98 99 Oximetry 01/04/22 01/04/22 01/04/22 11:45 12:00 12:15 Temperature Pulse Rate 71 85 78 Respiratory 18 18 18 Rate Blood Pressure 114/70 109/67 115/80 O2 Sat by Pulse 99 100 99 Oximetry Disposition Clinical Impression: Cerebrovascular accident (CVA) Disposition: ADMITTED IP TO THIS HOSP Condition: Stable Is patient prescribed a controlled substance at d/c from ED?: No Referrals: Gómez Saenz MD [Primary Care Provider] - 1-2 days Time of Disposition: 12:59
[2022-01-04 10:58] LABS: Glucose,Whole Blood 108 mg/dL (70-110)
[2022-01-04 11:12] LABS: Basophils # (A) 0.1 k/uL (0-0.2); Basophils % (A) 1 %; Eosinophils # (A) 0.2 k/uL (0-0.7); Eosinophils % (A) 3 %; HCT 39.5 % (34.0-46.0); HGB 13.4 gm/dL (11.4-16.0); Lymphocytes # (A) 1.6 k/uL (1.0-4.8); Lymphocytes % (A) 29 %; MCH 34.8 pg (25.0-35.0); MCHC 33.9 g/dL (31.0-37.0); MCV 102.5 fL (80.0-100.0); Macrocytosis Slight; Mean Platelet Volume 7.1; Monocytes # (A) 0.2 k/uL (0-1.0); Monocytes % (A) 4 %; Neutrophils # (A) 3.4 k/uL (1.3-7.7); Neutrophils % (A) 61 %; Platelet Count 306 k/uL (150-450); RBC 3.85 m/uL (3.80-5.40); RDW 12.4 % (11.5-15.5); WBC 5.5 k/uL (3.8-10.6)
--- NOTE | 2022-01-04 11:16 | CT ---
EXAMINATION TYPE: CT brain wo con for TPA CT DLP: 1090.6 mGycm, Automated exposure control for dose reduction was used. DATE OF EXAM: 01/04/2022 11:05 AM COMPARISON: 08/28/2018. CLINICAL INDICATION:Female, 41 years old with history of Neuro deficit, acute, stroke suspected, Left leg weakness. History of stroke. TECHNIQUE: Brain: Multiple axial CT images of the brain were obtained without IV contrast. FINDINGS: Brain: Extra-axial spaces: No abnormal extra-axial fluid collections. Ventricular system: Within normal limits Cerebral parenchyma: No acute intraparenchymal hemorrhage or mass effect. The jackson-white junction is well differentiated. Cerebellum: Unremarkable. Mass effect: No evidence of midline shift. Intracranial vasculature: unremarkable Soft tissues: Normal. Calvarium/osseous structures: No depressed skull fracture. Paranasal sinuses and mastoid air cells: Mild scattered paranasal sinus disease. Visualized orbits: Orbital contents are intact. IMPRESSION: No acute intracranial process.
[2022-01-04 11:27] LABS: ALT 12 U/L (4-34); AST 26 U/L (14-36); African American GFR (CKD) >90 (>60 ml/min/1.73 sqM); Albumin 4.8 g/dL (3.5-5.0); Alkaline Phosphatase 50 U/L (38-126); Anion Gap 7 mmol/L; Blood Urea Nitrogen 20 mg/dL (7-17); Calcium 9.1 mg/dL (8.4-10.2); Carbon Dioxide 24 mmol/L (22-30); Chloride 106 mmol/L (98-107); Glucose 107 mg/dL (74-99); Non-African American GFR(CKD) >90 (>60 ml/min/1.73 sqM); Potassium 3.9 mmol/L (3.5-5.1); Sodium 137 mmol/L (137-145); Total Bilirubin 0.5 mg/dL (0.2-1.3); Total Protein 7.8 g/dL (6.3-8.2)
[2022-01-04 11:29] LABS: Prothrombin Time 10.4 sec (9.0-12.0)
[2022-01-04 11:33] LABS: Partial Thromboplastin Time 21.5 sec (22.0-30.0)
--- NOTE | 2022-01-04 11:37 | CT ---
EXAMINATION TYPE: CODE STROKE: CTA head neck CT DLP: 365.7 mGycm, Automated exposure control for dose reduction was used. DATE OF EXAM: 01/04/2022 11:21 AM COMPARISON: CT brain same day. CLINICAL INDICATION:Female, 41 years old with history of LLE weakness; Left leg weakness. TECHNIQUE: Axially acquired helical CT angiogram of the head and neck was obtained with contrast. Axi al images are supplemented with 3D reconstructions [facility] criteria used. Contrast used:65ml mL of Isovue 370 with IV Contrast, Oral contrast used: None FINDINGS: CTA HEAD: No evidence of acute intracranial hemorrhage, mass effect, or midline shift. The ventricles, sulci, a nd cisterns are unremarkable. The visualized portions of the internal carotid arteries, middle cerebral arteries, anterior cerebral arteries, and posterior cerebral arteries are patent. The basilar and vertebral arteries are patent. CTA NECK: Right Carotid System: The common carotid artery and external carotid artery are patent. The carotid bifurcation demonstrate s no evidence of hemodynamically significant stenosis. The remaining portions of the internal carotid artery demonstrate normal size without significant narrowing. Left Carotid System: The common carotid artery and external carotid artery are patent. The carotid bifurcation demonstrate s no evidence of hemodynamically significant stenosis. The remaining portions of the internal carotid artery demonstrate normal size without significant narrowing. Vertebral arteries are patent without evidence hemodynamically significant stenosis. There is a three-vessel aortic arch. The origins of the great vessels are patent. No evidence of hemo dynamically significant stenosis. IMPRESSION: 1. No evidence of dissection of the cervical internal carotid arteries or vertebral arteries or any e vidence of significant stenosis at the carotid bifurcations. 2. No evidence of high-grade stenosis or intracranial aneurysm.
[2022-01-04] MEDS ORDERED: SODIUM CHLORIDE 0.9% 1,000 ML IV STA (12:01)
[2022-01-04] MEDS ORDERED: ASPIRIN 81 MG PO STA (12:01)
[2022-01-04] MEDS ORDERED: NALOXONE 0.4 MG/ML 1 ML VIAL IV PRN (12:59)
[2022-01-04] MEDS ORDERED: ACETAMINOPHEN TAB 325 MG TAB PO PRN (12:59)
[2022-01-04] MEDS ORDERED: ATORVASTATIN 80 MG TAB PO STA (13:57)
[2022-01-04] MEDS: CLOPIDOGREL 75 MG TAB PO SCH (14:14)
--- NOTE | 2022-01-04 14:25 | P.CNNES ---
History of Present Illness Consult date: 01/04/22 Requesting physician: Lin Wolf Reason for Consult: cva History of Present Illness: This is a 41-year-old woman history of stroke in 2019 without any residual deficits, hypertension who presented to our facility because of weakness over the left lower extremity. 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 She initially noticed that she was having left foot weakness. One of the physicians noticed that something was wrong so she was notified to come to the ED for evaluation. Patient stated she had a stroke in August 2018 and had weakness over the entire left side so she had to be transferred to [facility] since no neurologist at that time. She had work-up and was notified she had stroke. She was on ASA 81mg and Lipitor but stated she has been off medication since around COVID-19 pandemic since ran out of medication and her PCP retired. She had two miscarriages and last one was about 8 years ago. She tried IVF but unsuccessful. She denies of being on contraceptives. Her father had myocardial infarction in his 40's years-old and had stroke in his 50's years old. Some other workup in our facility consisted of: Initial MCV is 102.5 otherwise rest of the CBC with differential is unremarkable Serum glucose is 107 and the POC glucose is 108. BUN is 20 otherwise rest of chemistry panel is unremarkable CT of the head is reported as no acute intracranial process. I attempted to review the CT of the head but unable since the getting error message CT angiography of the head and neck was reported as no evidence of dissection of the cervical internal carotid arteries or vertebral arteries or evidence of significant stenosis at the carotid bifurcation. No evidence of high-grade s tenosis or intracranial aneurysm. EKG is reported as sinus rhythm. Normal EKG. Review of Systems Review of system: The 12 point system was reviewed and apparent positive and negative per HPI. Past Medical History Past Medical History: CVA/TIA, GERD/Reflux, Hypertension Additional Past Medical History / Comment(s): "rt knee pain and it feels like it is going to give out", hx acute CVA 2019-no residual History of Any Multi-Drug Resistant Organisms: None Reported Additional Past Surgical History / Comment(s): laparoscopy,hysteroscopy, D & C Past Anesthesia/Blood Transfusion Reactions: No Reported Reaction Past Psychological History: No Psychological Hx Reported Smoking Status: Never smoker - Past Family History Mother Family Medical History: No Reported History Medications and Allergies Home Medications Medication Instructions Recorded Confirmed Type Esomeprazole Magnesium [NexIUM] 20 mg PO HS 04/29/20 01/04/22 History amLODIPine BESYLATE/BENAZEPRIL 1 cap PO HS 04/29/20 01/04/22 History [amLODIPine BESYLATE/BENAZEPRIL 5-10 MG] Meloxicam [Mobic] 15 mg PO HS 01/04/22 01/04/22 History Allergies Allergy/AdvReac Type Severity Reaction Status Date / Time No Known Allergies Allergy Verified 01/04/22 13:55 Physical Examination - Vital Signs Vital Signs: Vital Signs Temp Pulse Resp BP Pulse Ox 01/04/22 12:45 75 18 123/77 97 01/04/22 12:15 78 18 115/80 99 01/04/22 12:00 85 18 109/67 100 01/04/22 11:45 71 18 114/70 99 01/04/22 11:30 69 18 123/80 99 01/04/22 11:15 71 18 132/84 98 01/04/22 10:34 98.1 F 72 20 140/85 100 Intake and Output 01/03/22 01/04/22 01/04/22 22:59 06:59 14:59 Other: Weight 49.4 kg GENERAL: The patient is lying in bed and is not in acute distress. CHEST: The heart rate is regular rate rhythm. No murmurs to auscultation. LUNG: Clear to auscultation bilaterally no wheezing noted throughout. Not labored breathing. ABDOMEN/GI: Bowel sounds present in all 4 quadrants. No tenderness to palpation throughout. NEUROLOGICAL: Higher mental function: The patient is awake, alert, oriented to self, place and time. Patient is following commands. No aphasia and no neglect. Cranial nerves: The pupils are round, equal and reactive to light and accommodation. Visual silva are full to confrontation throughout. Extraocular movement is intact no nystagmus is noted. Facial sensation is normal to touch throughout. The facial strength is normal throughout. Hearing is normal bilaterally to hand rub. Tongue is midline and moved [id number] without any difficulty. No dysarthria is noted. Shoulder shrug is normal bilaterally. Motor: The strength is left lower hip flexion is 4+ to 5-. Left ankle is 4. Otherwise 5 over 5 throughout. Normal tone and bulk. Cerebellum: Normal finger to nose bilaterally. Sensation: Sensation is mildy decreased over the left lower extremity to touch. Otherwise normal to touch throughout. Reflexes (right/left): 2+ throughout. Plantars are downgoing bilaterally. Results - Laboratory Findings CBC and BMP: 01/04/22 11:02 01/04/22 11:02 Abnormal Lab Findings: Abnormal Labs 01/04/22 01/04/22 01/04/22 11:02 11: 11:02 MCV 102.5 H APTT 21.5 L BUN 20 H Glucose 107 H Assessment and Plan Assessment: Acute ischemic stroke (Left lower extremity weakness and numbness). 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 But appears hypercoagulable. Had episode in 2019, 2 miscarriages, father had stroke at young age. History of stroke in 08/2018 (left sided weakness without residual) Hypertension GERD Medication Non-compliance (ASA and Liptor) Young stroke in father (in his 50's y/o and he had TX in his 40's) Plan: In the ED the patient was given aspirin 325 once. I'll start the patient on dual antiplatelet of aspirin 325 and Plavix 75 mg daily. I loaded the patient with Lipitor 80 mg once 1040 mg daily at bedtime. Ordered MRI of the brain urgently, 2-D echo with bubble study. Ordered TSH, MELISSA, antiDsDNA, antithrombin III, ESR, factor V Leiden, prothrombin 20 210 mutation, von Willebrand, lupus anticoagulant. I didn't order all the young stroke workup because of false-positive and recommended the rest of the young stroke workup to be ordered as an outpatient (unless hematology feels otherwise). Every [address] the patient on cardiac monitoring PT OT is consulted Consulted cardiology for possible EMY if 2D echo is normal and event monitor. Consulted hematology team for young stroke workup We'll defer the rest of medical management to primary team For DVT prophylaxis I started the patient on subcu heparin 5000 units every 12 hours The plan is discussed with the patient as well as ED team. Thank you for the consultation. Steven Villagomez M.D. Neuro[facility]hospital Time with Patient: Greater than 30
[2022-01-04 15:39] LABS: T4, Free (Free Thyroxine) 1.14 ng/dL (0.78-2.19)
[2022-01-04] MEDS: HEPARIN SODIUM,PORCINE/PF 5,000 UNIT/0.5 ML SYRINGE SQ SCH ×2 (16:38→23:24)
--- NOTE | 2022-01-04 18:57 | P.HPIM ---
History of Present Illness H&P Date: 01/04/22 Patient is a 41-year-old female with PMH of hypertension, CVA in 2019 with resolved left-sided weakness presents to the ED for left lower extremity weakness. Patient reports feeling heaviness in her left leg this morning while at work. 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 She denies any slurred speech or confusion. She denies any numbness/weakness/tingling of the extremities. She reports CVA in 2019 was worked at [employer]. She was discharged on aspirin and Lipitor but recently stopped during the COVID-19 pandemic. She denies any headache, lower extremity edema, nausea or vomiting, fever or chills, cough, chest pain, shor tness breath, palpitations, changes in urination or bowel habits. No changes in appetite or weight. She denies any numbness or tingling, dizziness. In the ED, her vital signs are stable. CBC showed MCV of 102.5. ESR was within normal limits. CMP showed BUN of 20, glucose of 107. TSH of 0.361 and FT4 of 1.14. CT brain was negative. CTA head and neck showed no evidence of high grade stenosis. Patient is admitted for a CVA workup. Review of systems was performed and is negative as above. General: [non toxic], [no distress], [appears at stated age] Derm: [warm], [dry] Head: [atraumatic], [normocephalic], [symmetric] Eyes: [EOMI], [no lid lag], [anicteric sclera] Mouth: [no lip lesion], [mucus membranes moist] Cardiovascular: [S1S2 reg], [no murmur] Lungs: [CTA bilateral], [no rhonchi, no rales] , [no accessory muscle use] Ext: [no gross muscle atrophy], [no edema], [no contractures] Neuro: [ CN II-XI grossly intact], [no focal neuro deficits except 4/5 in LLE] Psych: [Alert], [oriented], [appropriate affect] Assessment and Plan Left sided weakness with history of CVA Hypertension Macrocytosis Elevated BUN Low TSH Neurology has been consulted for further management of this patient. Patient started on ASA, Plavix and Lipitor. Telemetry monitoring. Neurochecks. MRI brain and Echocardiogram ordered. Carotid doppler. Lipid panel and A1c ordered. PT and OT consulted. Restart amlodipine/benazepril after 24H. Monitor vitals, adjust medications as necessary. B12 and Folate ordered. Free T4 within normal limits. Repeat in 6 weeks. Heparin for DVT prophylaxis. decision maker if she cant make decisions for herself. Patient would like to be FULL CODE. Past Medical History Past Medical History: CVA/TIA, GERD/Reflux, Hypertension Additional Past Medical History / Comment(s): ", hx acute CVA 2019-no residual degenerative arthritis. History of Any Multi-Drug Resistant Organisms: None Reported Past Surgical History: Orthopedic Surgery Additional Past Surgical History / Comment(s): laparoscopy,hysteroscopy, D & C rt knee arthoscopy. Past Anesthesia/Blood Transfusion Reactions: No Reported Reaction Past Psychological History: No Psychological Hx Reported Smoking Status: Never smoker Past Alcohol Use History: Occasional Past Drug Use History: None Reported - Past Family History Mother Family Medical History: No Reported History Father Family Medical History: CVA/TIA, Hypertension, Myocardial Infarction ([place]) Medications and Allergies Home Medications Medication Instructions Recorded Confirmed Type Esomeprazole Magnesium [NexIUM] 20 mg PO HS 04/29/20 01/04/22 History amLODIPine BESYLATE/BENAZEPRIL 1 cap PO HS 04/29/20 01/04/22 History [amLODIPine BESYLATE/BENAZEPRIL 5-10 MG] Meloxicam [Mobic] 15 mg PO HS 01/04/22 01/04/22 History Allergies Allergy/AdvReac Type Severity Reaction Status Date / Time No Known Allergies Allergy Verified 01/04/22 13:55 Physical Exam Vitals: Vital Signs Temp Pulse Pulse Resp BP BP Pulse Ox 01/04/22 16:41 75 16 127/66 99 01/04/22 16:15 72 18 125/75 98 01/04/22 15:15 77 18 122/80 98 01/04/22 14:45 70 18 118/73 98 01/04/22 14:15 71 18 120/79 100 01/04/22 13:45 72 18 110/75 98 01/04/22 13:15 75 18 118/74 98 01/04/22 12:45 75 18 123/77 97 01/04/22 12:15 72 18 114/72 98 01/04/22 12:00 85 18 109/67 100 01/04/22 11:45 71 18 114/70 99 01/04/22 11:30 69 18 123/80 99 01/04/22 11:15 71 18 132/84 98 01/04/22 10:34 98.1 F 72 20 140/85 100 Intake and Output 01/04/22 01/04/22 01/04/22 06:59 14:59 22:59 Intake Total 240 Balance 240 Intake: Oral 240 Other: Weight 49.4 kg 49.4 kg Results CBC & Chem 7: 01/04/22 11:02 01/04/22 11:02 Labs: Abnormal Lab Results - Last 24 Hours (Table) 01/04/22 01/04/22 01/04/22 Range/Units 11:02 11:02 11:02 MCV 102.5 H (80.0-100.0) fL APTT 21.5 L (22.0-30.0) sec BUN 20 H (7-17) mg/dL Glucose 107 H (74-99) mg/dL TSH (0.465-4.680) mIU/L 01/04/22 Range/Units 14:07 MCV (80.0-100.0) fL APTT (22.0-30.0) sec BUN (7-17) mg/dL Glucose (74-99) mg/dL TSH 0.361 L (0.465-4.680) mIU/L Thrombosis Risk Factor Assmnt - Choose All That Apply Each Factor Represents 1 point: Age 41-60 years Other Risk Factors: Yes Thrombosis Risk Factor Assessment Total Risk Factor Score: 1 Thrombosis Risk Factor Assessment Level: Low Risk
[2022-01-04] MEDS: PANTOPRAZOLE 40 MG TABLET PO SCH (19:36)
--- NOTE | 2022-01-04 21:14 | US ---
EXAMINATION TYPE: US carotid duplex BILAT DATE OF EXAM: 01/04/2022 COMPARISON: NONE CLINICAL HISTORY: CVA workup`. Exam done portable EXAM MEASUREMENTS: RIGHT: Peak Systolic Velocity (PSV) cm/sec ----- Right CCA: 84.2 ----- Right ICA: 132.0 ----- Right ECA: 91.1 ICA/CCA ratio: 1.6 RIGHT: End Diastole cm/sec ----- Right CCA: 27.0 ----- Right ICA: 55.0 ----- Right ECA: 17.8 LEFT: Peak Systolic Velocity (PSV) cm/sec ----- Left CCA: 91.0 ----- Left ICA: 115.1 ----- Left ECA: 86.4 ICA/CCA ratio: 1.3 LEFT: End Diastole cm/sec ----- Left CCA: 34.3 ----- Left ICA: 61.7 ----- Left ECA: 14.9 VERTEBRALS (direction of flow): Right Vertebral: Antegrade Left Vertebral: Antegrade Rhythm: Normal No significant stenosis IMPRESSION: There is antegrade flow in the vertebral arteries. The images and measurements suggest close to 0% st enosis in both internal carotid arteries. Criteria for Assigning % of Stenosis / Diameter reduction (Estimation based on the indirect measurements of the internal carotid artery velocities (ICA PSV). 1. Normal (no stenosis)=ICA PSV < 125 cm/s: ratio < 2.0: ICA EDV<40 cm/s. 2. Less than 50% stenosis=ICA PSV < 125 cm/s: ratio < 2.0: ICA EDV<40 cm/s. 3. 50 to 69% stenosis=ICA PSV of 125 to 230 cm/s: ration 2.0 ? 4.0: ICA EDV 40-100 cm/s. 4. Greater than 70% stenosis to near occlusion= ICA PSV > 230 cm/s: ratio > 4.0: ICA EDV > 100 cm/s. 5. Near occlusion= ICA PSV velocities may be low or undetectable: variable ratio and ICA EDV. 6. Total occlusion=unable to detect flow.
[2022-01-04 22:03] LABS: Appearance,Urine Clear (Clear); Bilirubin,Urine Negative (Negative); Blood,Urine Negative (Negative); Color,Urine Light Yellow; Glucose,Urine (UA) Negative (Negative); Ketones,Urine Negative (Negative); Leukocyte Esterase,Urine Small (Negative); Mucus,Urine Occasional /hpf; Nitrite,Urine Negative (Negative); PH, Urine 6.5 (5.0-8.0); Protein,Urine Negative (Negative); RBC,Urine 1 /hpf (0-5); Specific Gravity,Urine 1.022 (1.001-1.035); Squamous Epithelial Cell,Urine 5 /hpf (0-4); Urobilinogen,Urine <2.0 mg/dL (<2.0); WBC,Urine 3 /hpf (0-5)
[2022-01-05 01:02] LABS: Anti-DNA, DS unit <1.0 IU/mL; DNA Double-Stranded NEGATIVE (NEGATIVE)
[2022-01-05 04:52] LABS: Chol/HDL Ratio 2.25 Ratio; LDL Cholesterol,Calculated 73.1 mg/dL (0.0-131.0); VLDL Calculation 18.56 mg/dL (5.00-40.00)
[2022-01-05] MEDS: HEPARIN SODIUM,PORCINE/PF 5,000 UNIT/0.5 ML SYRINGE SQ SCH ×3 (08:24→23:51)
[2022-01-05] MEDS: ASPIRIN 325 MG TAB PO SCH (08:24)
[2022-01-05] MEDS: CLOPIDOGREL 75 MG TAB PO SCH (08:24)
[2022-01-05] MEDS ORDERED: ALPRAZolam 1 MG TAB PO PRN (09:00)
[2022-01-05 10:42] LABS: Anti-Thrombin III Activity 6 % (79-109)
--- NOTE | 2022-01-05 10:51 | MR ---
MR brain without contrast HISTORY: Stroke, left-sided weakness Multiplanar multisequence imaging obtained through brain Correlation to CT brain dated 01/04/2022 There is no restricted diffusion to suggest subacute ischemia. Periventricular white matter shows a f ocus of hyperintensity and inversion recovery T2-weighted sequences, axial image 21, questionable cli nical significance. There is no hemorrhage or hydrocephalus. Cerebellopontine angles, corpus callosum , pituitary, cervical medullary junction are unremarkable. The orbits show symmetric appearance. Para nasal sinuses are well aerated, mastoids show inflammatory change on the left. There are expected vas cular flow voids. IMPRESSION: Nonspecific white matter demyelination of questionable clinical significance. It is consi stent with some mastoid inflammatory change. No evident subacute brain ischemia.
--- NOTE | 2022-01-05 12:21 | P.CRDCN ---
History of Present Illness History of present illness: This is Dr. Cash dictating a consult on this patient The patient was interviewed and examined IMPRESSION / ASSESSMENT: Patient admitted with weakness in the lower extremity However on my examination yesterday she had weakness in her upper extremity also Hypertension with normal blood pressure readings yesterday, on amlodipine and benazepril Recently started Mobic Not on atorvastatin antiplatelet therapy Past history of a neurologic event. This time the MRI shows nonspecific demyelination She had weakness of her left lower extremity as well as weakness in the upper extremity and the MRI as well as the CTA of the brain does not show any obvious embolic lesion infarction or mass lesion to account for weakness is such a large territory PLAN: Await 2-D echo and Doppler study results as well as bubble study results Continue antihypertensive therapy HPI Patient presented with lower left extremity weakness. She was dragging her foot Blood pressure was normal ROS: No fever chills or rigors, no cough, phlegm or expectoration, no nausea, vomiting or diarrhea, no hematuria, dysuria, no musculoskeletal complaints, no strokes or seizures, no skin lesions. EXAMINATION: Normal blood pressures today. Normal blood pressure yesterday Normal cranial nerve examination Normal cerebellar examination Left-sided weakness with mildly diminished reflexes but definitely present The weakness involved the left upper and left lower extremity REVIEW OF LABS, ECG & MEDICAL DATA brain MRI shows nonspecific white matter demyelination of questionable significance with mastoiditis No evidence for subacute brain ischemia no infarction CT angiography did not show any abnormality Carotids are normal She underwent a bubble study which is normal. Final echo report pending TSH is suppressed LDL is 73 Anti-thrombin 3 activity low ESR is normal Hemoglobin A1c 5.3 MELISSA negative Double-stranded DNA antibody negative Past Medical History Past Medical History: CVA/TIA, GERD/Reflux, Hypertension Additional Past Medical History / Comment(s): ", hx acute CVA 2019-no residual degenerative arthritis. History of Any Multi-Drug Resistant Organisms: None Reported Past Surgical History: Orthopedic Surgery Additional Past Surgical History / Comment(s): laparoscopy,hysteroscopy, D & C rt knee arthoscopy. Past Anesthesia/Blood Transfusion Reactions: No Reported Reaction Past Psychological History: No Psychological Hx Reported Smoking Status: Never smoker Past Alcohol Use History: Occasional Past Drug Use History: None Reported - Past Family History Mother Family Medical History: No Reported History Father Family Medical History: CVA/TIA, Hypertension, Myocardial Infarction ([place]) Medications and Allergies Home Medications Medication Instructions Recorded Confirmed Type Esomeprazole Magnesium [NexIUM] 20 mg PO HS 04/29/20 01/04/22 History amLODIPine BESYLATE/BENAZEPRIL 1 cap PO HS 04/29/20 01/04/22 History [amLODIPine BESYLATE/BENAZEPRIL 5-10 MG] Meloxicam [Mobic] 15 mg PO HS 01/04/22 01/04/22 History Allergies Allergy/AdvReac Type Severity Reaction Status Date / Time No Known Allergies Allergy Verified 01/04/22 13:55 Physical Exam Vitals: Vital Signs Temp Pulse Pulse Resp BP BP Pulse Ox 01/05/22 08:22 98.3 F 70 16 111/74 100 01/05/22 04:00 98 F 70 18 102/67 98 01/05/22 02:00 88 18 01/05/22 00:00 98.3 F 88 18 105/69 98 01/04/22 20:00 98.2 F 84 18 123/75 100 01/04/22 16:41 75 16 127/66 99 01/04/22 16:15 72 18 125/75 98 01/04/22 15:15 77 18 122/80 98 01/04/22 14:45 70 18 118/73 98 01/04/22 14:15 71 18 120/79 100 01/04/22 13:45 72 18 110/75 98 01/04/22 13:15 75 18 118/74 98 01/04/22 12:45 75 18 123/77 97 Intake and Output 01/04/22 01/05/22 01/05/22 22:59 06:59 14:59 Intake Total 240 650 0 Output Total 50 Balance 190 650 0 Intake: Oral 240 650 0 Output: Urine 50 Other: Voiding Method Toilet Toilet # Voids 1 Weight 49.4 kg Results 01/04/22 11:02 01/04/22 11:02 Lipids 01/04/22 Range/Units 14:07 Triglycerides 92.80 (0.00-149.00) mg/dL Cholesterol 165.00 (0.00-200.00) mg/dL HDL Cholesterol 73.30 H (40.00-60.00) mg/dL Cholesterol/HDL Ratio 2.25 Ratio Current Medications Generic Name Dose Route Start Last Admin Trade Name Freq PRN Reason Stop Dose Admin Acetaminophen 650 mg 07/18/22 12:59 Acetaminophen Tab 325 Mg Tab PO Q6HR PRN Mild Pain or Fever > 100.5 Alprazolam 1 mg 01/05/22 09:00 01/05/22 09:43 Alprazolam 1 Mg Tab PO 1 mg ONCE PRN Administration Anxiety Amlodipine Besylate 5 mg 01/05/22 21:00 Amlodipine 5 Mg Tab PO HS GERMAN Aspirin 325 mg 01/05/22 09:00 01/05/22 08:24 Aspirin 325 Mg Tab PO 325 mg DAILY GERMAN Administration Atorvastatin Calcium 40 mg 01/05/22 21:00 Atorvastatin 40 Mg Tab PO HS GERMAN Clopidogrel Bisulfate 75 mg 01/04/22 14:00 01/05/22 08:24 Clopidogrel 75 Mg Tab PO 75 mg DAILY GERMAN Administration Heparin Sodium (Porcine) 5,000 unit 01/04/22 16:00 01/05/22 08:24 Heparin Sodium,Porcine/Pf 5,000 Unit/0.5 Ml Syringe SQ 5,000 unit Q8HR GERMAN Administration Lisinopril 10 mg 01/05/22 21:00 Lisinopril 10 Mg Tab PO HS GERMAN Naloxone HCl 0.2 mg 01/04/22 12:59 Naloxone 0.4 Mg/Ml 1 Ml Vial IV Q2M PRN Opioid Reversal Pantoprazole Sodium 40 mg 01/04/22 21:00 01/04/22 19:36 Pantoprazole 40 Mg Tablet PO 40 mg HS GERMAN Administration Intake and Output 01/04/22 01/05/22 01/05/22 22:59 06:59 14:59 Intake Total 240 650 0 Output Total 50 Balance 190 650 0 Intake: Oral 240 650 0 Output: Urine 50 Other: Voiding Method Toilet Toilet # Voids 1 Weight 49.4 kg 01/04/22 11:02 01/04/22 11:02
--- NOTE | 2022-01-05 13:41 | CA ---
Transthoracic Echo Report Name: Renee Syed Age: 41 Gender: F : 1980 Exam Date: 01/05/2022 07:55 Exam Location: [facility] Ht (in): 60 Wt (lb): 108 Ordering Physician: Steven Villagomez MD Attending/Referring Phys: Aubrey Cash MD ([id number]) Medical Reimbursement Manager Angeline Mansfield RDCS Procedure CPT: Indications: stroke. Perform with bubble study. Cardiac Hx: Hx of stroke Technical Quality: Good Contrast 1: Lumason Total Dose (mL): 2 Contrast 2: Total Dose (mL): MEASUREMENTS (Male / Female) Normal Values 2D ECHO LV Diastolic Diameter PLAX 3.5 cm 4.2 - 5.9 / 3.9 - 5.3 cm LV Systolic Diameter PLAX 2.0 cm IVS Diastolic Thickness 0.8 cm 0.6 - 1.0 / 0.6 - 0.9 cm LVPW Diastolic Thickness 0.9 cm 0.6 - 1.0 / 0.6 - 0.9 cm LV Relative Wall Thickness 0.5 RV Internal Dim ED PLAX 1.8 cm LA Volume 15.9 cm??? 18 - 58 / 22 - 52 cm??? M-MODE Aortic Root Diameter MM 3.0 cm LA Systolic Diameter MM 2.4 cm LA Ao Ratio MM 0.8 MV E Point Septal Separation 0.5 cm AV Cusp Separation MM 1.9 cm DOPPLER AV Peak Velocity 97.5 cm/s AV Peak Gradient 3.8 mmHg MV Area PHT 3.7 cm??? MR Peak Velocity 103.0 cm/s MR Peak Gradient 4.2 mmHg Mitral E Point Velocity 92.8 cm/s Mitral A Point Velocity 62.1 cm/s Mitral E to A Ratio 1.5 MV Deceleration Time 207.8 ms MV E' Velocity 10.6 cm/s Mitral E to MV E' Ratio 8.8 TR Peak Velocity 115.9 cm/s TR Peak Gradient 5.4 mmHg Right Ventricular Systolic Press 10.3 mmHg FINDINGS Left Ventricle Normal Left ventricular size, wall thickness, systolic function with no obvious regional wall motion abnormalities. Normal Left ventricular diastolic filling pattern. Left ventricular ejection fraction is estimated at 55-60 %. Right Ventricle The right ventricle is normal in size and function. Right Atrium The right atrium is normal in size. Negative agitated saline bubble study for right to left shunt. Left Atrium The left atrium is normal in size. Mitral Valve Structurally normal mitral valve without significant stenosis or prolapse. There is trace mitral regurgitation. Aortic Valve Structurally normal aortic valve without significant sclerosis or stenosis. There is no aortic regurgitation. Tricuspid Valve Structurally normal tricuspid valve without significant stenosis. Pulmonary artery systolic pressure is normal.trace tricuspid regurgitation. Pulmonic Valve Structurally normal pulmonic valve without significant stenosis. There is no pulmonic regurgitation. Pericardium Normal pericardium without effusion. Aorta Normal aortic root dimension. CONCLUSIONS Normal left ventricular ejection fraction 55-60% Negative bubble study Trace mitral regurgitation Trace tricuspid regurgitation No pericardial effusion Previewed by: Dr. Charanjit Singh DO (Electronically Signed) Final Date: 05 January 2022 13:40
--- NOTE | 2022-01-05 14:05 | P.PN ---
Subjective Progress Note Date: 01/05/22 Hospital course: Patient is a very pleasant 41-year-old female with a past medical history of hypertension and previous CVA in 2019 with resolved left-sided weakness. She presented to the emergency department 01/04/22 with a chief complaint of left lower extremity weakness/heaviness. Patient reports while at work she noticed that her legs felt heavy or and was more difficult to less than normal. She reports that the physician she was working with recommended she come to the emergency department for evaluation secondary to her history of hypertension and CVA as well as family history significant for cerebrovascular and cardiovascular disease. She denied experiencing any numbness/tingling in her extremities reports left leg simply felt heavier than usual. She states she was previously on Lipitor and aspirin from her previous CVA, but stopped taking after Covid hip. Patient reports she does follow with the PCP and has been started on multiple medications for control of her blood pressure and is currently on amlodipine/benazepril which has been successful in maintaining normotensive pressures. Patient underwent full evaluation in the emergency department. CBC, coags, and CMP unremarkable. Lipid profile also unremarkable. TSH 0.361 with free T4 1.14. MELISSA screen was negative EKG completed showing normal sinus rhythm at 70 bpm with no noted T-wave or ST abnormalities showing no signs of acute ischemia. CT head negative for acute intercranial process. CTA head and neck were also unremarkable showing no evidence of high-grade stenosis or intercranial aneurysm. Carotid Doppler unremarkable reporting 0% stenosis in bilateral internal carotid arteries. Patient admitted under our service as a consultation to neurology and cardiology. MRI completed awaiting results Echocardiogram with bubble study being completed. Physical exam: Patient seen and fully evaluated at bedside this morning. This morning she reports he is feeling great. She stated previously reported symptoms of left l ower extremity weakness/heaviness have resolved. Patient did have minimal weakness noted in left lower extremity when compared to right unclear if this is baseline from previous CVA or new finding. Patient denied having any numbness/tingling and denied any difficulties with her changes in her speech. Patient currently denies having any headache, lightheadedness, dizziness, chest pain, palpitations, or shortness of breath. Patient to continue with daily aspirin, atorvastatin, and Plavix and to resume amlodipine/benazepril this evening. Vital signs reviewed and stable. General: Nontoxic, no distress and appears stated age. Derm: Skin warm and dry, normal coloration for ethnicity. Head: Atraumatic, normocephalic and symmetric. Eyes: EOMs intact, no lid lag, and anicteric sclera Mouth: no lip lesions, mucus membranes moist Cardiovascular: regular rate and rhythm with normal S1S2, no murmur, positive posterior tibial pulses bilaterally, and cap refill < 2 seconds. Lungs: Respirations even, regular, and unlabored on room air. Lungs CTA bilaterally, no rhonchi, no rales, no wheezing, and no accessory muscle usage. Abdominal: soft, nontender to palpation, no guarding, no appreciable organomegaly Ext: ROM intact. No gross muscle atrophy, no edema, no contractures. 5 out of 5 strength in bilateral upper and RLE 5/5 with LLE 4/5 stregth extremities. Neuro: Speech clear, face symmetrical and CN II-XII grossly intact with no noted focal neuro deficits Psych: Alert and oriented to person, place, time, and situation. Appropriate and pleasant affect. Assessment and Plan of Care: Left lower extremity weakness, rule out TIA versus CVA History of CVA with previously resolved left-sided deficits -Continue daily aspirin, atorvastatin, and Plavix. -Neurology consulted, appreciate further recommendations. -Cardiology consulted, appreciate further recommendations. -CT head and CTA head and neck unremarkable. -Echocardiogram with bubble study completed awaiting results. -MRI completed pending results. -B12 and Folate normal findings, MELISSA negative and double strand DNA antibody also negative. -Lipid profile unremarkable. Hemoglobin A1c 5.3%. -Continue neuro checks every 4 hours. Hypertension -Monitor vital signs and resume amlodipine/benazepril this evening. Low TSH with Free T4 within normal limits. -Recommend outpatient follow-up with PCP with Repeat labs in 6 weeks. CODE STATUS: Full code DVT prophylaxis: Heparin Discussed with: patient and RN Anticipated discharge date: 1-[address]: Home A total of 37 minutes was spent on the care of this complex patient more than 50% of the time was spent in counseling and care coordination. Kike Cobian NP rendered care for this patient independently, reviewed the findings and plan as documented in the note above. I did not physically speak with or examine the patient on this date. Objective - Vital Signs Vital signs: Vital Signs Temp 98 F 01/05/22 04:00 Pulse 70 01/05/22 04:00 Resp 18 01/05/22 04:00 BP 102/67 01/05/22 04:00 Pulse Ox 98 01/05/22 04:00 FiO2 Intake & Output 01/04/22 01/05/22 01/05/22 18:59 06:59 18:59 Intake Total 240 650 Output Total 50 Balance 240 600 Weight 49.4 kg Intake: Oral 240 650 Output: Urine 50 Other: Voiding Method Toilet # Voids 1 - Labs CBC & Chem 7: 01/04/22 11:02 01/04/22 11:02 Labs: Abnormal Lab Results - Last 24 Hours (Table) 01/04/22 01/04/22 01/04/22 Range/Units 11:02 11:02 11:02 MCV 102.5 H (80.0-100.0) fL APTT 21.5 L (22.0-30.0) sec BUN 20 H (7-17) mg/dL Glucose 107 H (74-99) mg/dL HDL Cholesterol (40.00-60.00) mg/dL TSH (0.465-4.680) mIU/L Ur Leukocyte Esterase (Negative) Ur Squamous Epith Cells (0-4) /hpf Urine Mucus (None) /hpf 01/04/22 01/04/22 Range/Units 14:07 21:42 MCV (80.0-100.0) fL APTT (22.0-30.0) sec BUN (7-17) mg/dL Glucose (74-99) mg/dL HDL Cholesterol 73.30 H (40.00-60.00) mg/dL TSH 0.361 L (0.465-4.680) mIU/L Ur Leukocyte Esterase Small H (Negative) Ur Squamous Epith Cells 5 H (0-4) /hpf Urine Mucus Occasional H (None) /hpf
[2022-01-05 14:20] LABS: APTT 41 Sec(s) (<43); Dilute Russell Viper Venom 35 Sec(s) (<44)
--- NOTE | 2022-01-05 14:36 | P.PN ---
Subjective Progress Note Date: 01/05/22 The patient is seen at bedside and stated she is doing better compared to yesterday. Denies of any new neurological issues. Objective - Vital Signs Vital signs: Vital Signs Temp 98.3 F 01/05/22 08:22 Pulse 72 01/05/22 12:29 Resp 16 01/05/22 12:29 BP 104/61 01/05/22 12:29 Pulse Ox 100 01/05/22 12:29 FiO2 Intake & Output 01/04/22 01/05/22 01/05/22 18:59 06:59 18:59 Intake Total 240 650 0 Output Total 50 Balance 240 600 0 Weight 49.4 kg Intake: Oral 240 650 0 Output: Urine 50 Other: Voiding Method Toilet # Voids 1 - Exam GENERAL: The patient is lying in bed and is not in acute distress. NEUROLOGICAL: Higher mental function: The patient is awake, alert, oriented to self, place and time. Patient is following commands. No aphasia and no neglect. Cranial nerves: The pupils are round, equal and reactive to light and accommodation. Visual silva are full to confrontation throughout. Extraocular movement is intact no nystagmus is noted. Facial sensation is normal to touch throughout. The facial strength is normal throughout. Hearing is normal bilaterally to hand rub. Tongue is midline and moved [id number] without any difficulty. No dysarthria is noted. Shoulder shrug is normal bilaterally. Motor: The strength is 5 over 5 throughout. Normal tone and bulk. Cerebellum: Normal finger to nose bilaterally. Sensation: Normal to touch throughout. Reflexes (right/left): 2+ throughout. Plantars are downgoing bilaterally. Some other workup in our facility during this hospital visit consisted of: ESR 7 Lipid panel is a triglyceride of 92, cholesterol 165, LDL 73, HDL of 73 Vitamin B12 is 557 folate is 16.70 TSH is 0.361 which is a low but the free T4 is 1.1 for which is within normal limits MELISSA is negative [id number] is less than 1.0 Lupus anticoagulant is not detected Antithrombin III antigen and activity is minimally/borderline low that antigen is 79 and a normal is between 80-120 antithrombin III activity is 6 and the normal is between 79 07/21/2008 Hemoglobin A1c is 5.[address] of the head is reported as no acute intracranial process. I attempted to review the CT of the head but unable since the getting error message CT angiography of the head and neck was reported as no evidence of dissection of the cervical internal carotid arteries or vertebral arteries or evidence of significant stenosis at the carotid bifurcation. No evidence of high-grade stenosis or intracranial aneurysm. EKG is reported as sinus rhythm. Normal EKG. 2-D echo was reported as normal left ventricle ejection fraction of 55-60%. Negative bubble study. No pericardial effusion. Left atrium is normal in size. MRI of the brain is reported as nonspecific white matter demyelination of questionable clinical significance. It is consistent with some mastoid inflammatory changes. No evidence of subacute brain ischemia. I personally reviewed the MRI of the brain and I felt was on unremarkable for any acute subacute ischemia. - Labs CBC & Chem 7: 01/04/22 11:02 01/04/22 11:02 Labs: Abnormal Lab Results - Last 24 Hours (Table) 01/04/22 01/04/22 01/04/22 Range/Units 14:07 14:07 14:07 Antithrombin III Ag 79 L (80 - 120) % Antithrombin III Activ 6 L (79-109) % HDL Cholesterol 73.30 H (40.00-60.00) mg/dL TSH 0.361 L (0.465-4.680) mIU/L Ur Leukocyte Esterase (Negative) Ur Squamous Epith Cells (0-4) /hpf Urine Mucus (None) /hpf 01/04/22 Range/Units 21:42 Antithrombin III Ag (80 - 120) % Antithrombin III Activ (79-109) % HDL Cholesterol (40.00-60.00) mg/dL TSH (0.465-4.680) mIU/L Ur Leukocyte Esterase Small H (Negative) Ur Squamous Epith Cells 5 H (0-4) /hpf Urine Mucus Occasional H (None) /hpf Assessment and Plan Assessment: Transient ischemic attack (Left lower extremity weakness and numbness). 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 But appears hypercoagulable. Had episode in 2019, 2 miscarriages, father had stroke at young age. History of stroke in 08/2018 (left sided weakness without residual deficits) Hypertension GERD Medication Non-compliance (ASA and Lipitor) Young stroke in father (in his 50's y/o and he had RI in his 40's) Plan: Continue aspirin 325 daily and Plavix 75 mg daily which were started during this hospital visit. Patient to be on dual antiplatelets for 21 days and after 21 days stop Plavix but continue aspirin indefinitely. Continue Lipitor 40 mg daily at bedtime for secondary stroke prophylaxis. I recommend rest of the hypercoagulable workup to be performed as an outpatient. Patient had antithrombin III level that was low and recommend repeated as an outpatient within 4-6 weeks. Pending factor V Leiden, prothrombin 20 210 mutation, lupus anticoagulant. Hematology is on board Every 4 hours neuro checks Continue on cardiac monitoring PT OT is consulted Recommend transesophageal echocardiogram as an outpatient and if all the workup as an outpatient is negative I would recommend pursuing with an event monitor for 30 days. Cardiology team is on board We'll defer the rest of medical management to primary team For DVT prophylaxis Continue subcu heparin 5000 units every 12 hours Recommend the patient follow up with a neurologist as an outpatient within 1-2 weeks The plan is discussed with the patient and her significant other who is at bedside. No additional workup is needed Steven Villagomez M.D. Neuro-hospital Time with Patient: Less than 30
--- NOTE | 2022-01-05 17:17 | P.CONS ---
History of Present Illness - Reason for Consult Consult date: 01/05/22 CVA, unknown etiology Requesting physician: Lin Wolf - Chief Complaint Sudden onset Left limb weakness and foot drop - History of Present Illness Patient is a very pleasant 41-year-old female with sudden onset left limb weakness and foot drop. Patient has a history of CVA in 2019, HTN. She was on statin and aspirin, stopped sometime around 2019. She has history of 2 miscarriages, father with AK and stroke. She is currently on aspirin and Plavix. Otherwise unremarkable past medical history. Review of Systems 10 point review of systems is negative except as stated in HPI Past Medical History Past Medical History: CVA/TIA, GERD/Reflux, Hypertension Additional Past Medical History / Comment(s): ", hx acute CVA 2019-no residual degenerative arthritis. History of Any Multi-Drug Resistant Organisms: None Reported Past Surgical History: Orthopedic Surgery Additional Past Surgical History / Comment(s): laparoscopy,hysteroscopy, D & C rt knee arthoscopy. Past Anesthesia/Blood Transfusion Reactions: No Reported Reaction Past Psychological History: No Psychological Hx Reported Smoking Status: Never smoker Past Alcohol Use History: Occasional Past Drug Use History: None Reported - Past Family History Mother Family Medical History: No Reported History Father Family Medical History: CVA/TIA, Hypertension, Myocardial Infarction (AK) Medications and Allergies Home Medications Medication Instructions Recorded Confirmed Type Esomeprazole Magnesium [NexIUM] 20 mg PO HS 04/29/20 01/04/22 History amLODIPine BESYLATE/BENAZEPRIL 1 cap PO HS 04/29/20 01/04/22 History [amLODIPine BESYLATE/BENAZEPRIL 5-10 MG] Meloxicam [Mobic] 15 mg PO HS 01/04/22 01/04/22 History Allergies Allergy/AdvReac Type Severity Reaction Status Date / Time No Known Allergies Allergy Verified 01/04/22 13:55 Physical Exam Vitals: Vital Signs Temp Pulse Pulse Resp BP BP Pulse Ox 01/05/22 08:22 98.3 F 70 16 111/74 100 01/05/22 04:00 98 F 70 18 102/67 98 01/05/22 02:00 88 18 01/05/22 00:00 98.3 F 88 18 105/69 98 01/04/22 20:00 98.2 F 84 18 123/75 100 01/04/22 16:41 75 16 127/66 99 01/04/22 16:15 72 18 125/75 98 01/04/22 15:15 77 18 122/80 98 01/04/22 14:45 70 18 118/73 98 01/04/22 14:15 71 18 120/79 100 01/04/22 13:45 72 18 110/75 98 01/04/22 13:15 75 18 118/74 98 01/04/22 12:45 75 18 123/77 97 01/04/22 12:15 72 18 114/72 98 01/04/22 12:00 85 18 109/67 100 01/04/22 11:45 71 18 114/70 99 Intake and Output 01/04/22 01/05/22 01/05/22 22:59 06:59 14:59 Intake Total 240 650 0 Output Total 50 Balance 190 650 0 Intake: Oral 240 650 0 Output: Urine 50 Other: Voiding Method Toilet Toilet # Voids 1 Weight 49.4 kg - Constitutional General appearance: average body habitus, cooperative, no acute distress - EENT Eyes: anicteric sclerae, EOMI ENT: hearing grossly normal, normal oropharynx - Neck Neck: no lymphadenopathy - Respiratory Respiratory: bilateral: CTA - Cardiovascular Rhythm: regular Heart sounds: normal: S1, S2 Abnormal Heart Sounds: no systolic murmur, no diastolic murmur, no rub, no S3 Gallop, no S4 Gallop, no click, no other leg Peripheral Edema: bilateral: None - Gastrointestinal General gastrointestinal: no absent bowel sounds, no decreased bowel sounds, no distended, no hepatomegaly, no hyperactive bowel sounds, normal bowel sounds, no organomegaly, no rigid, no scaphoid, soft, no splenomegaly, no tenderness, no umbilical hernia, no ventral hernia - Integumentary Integumentary: normal - Neurologic Neurologic: CNII-XII intact - Psychiatric Psychiatric: A&O x's 3, appropriate affect, intact judgment & insight Results CBC & Chem 7: 01/04/22 11:02 01/04/22 11:02 Labs: Abnormal Lab Results - Last 24 Hours (Table) 01/04/22 01/04/22 01/04/22 Range/Units 14:07 14:07 21:42 Antithrombin III Activ 6 L (79-109) % HDL Cholesterol 73.30 H (40.00-60.00) mg/dL TSH 0.361 L (0.465-4.680) mIU/L Ur Leukocyte Esterase Small H (Negative) Ur Squamous Epith Cells 5 H (0-4) /hpf Urine Mucus Occasional H (None) /hpf Comments: CT angio report reviewed CT Scan - head: report reviewed MRI - head: report reviewed Assessment and Plan (1) Cerebrovascular accident (CVA) Current Visit: Yes Status: Acute Priority: High Code(s): I63.9 - CEREBRAL INFARCTION, UNSPECIFIED SNOMED Code(s): 920832084 Plan: Dr. James discussed case with Neurologist Dr. Villagomez. Plan is for hypercoaguable work up. Pt has history that is suspicious for the same. If any of the phospholipid ab are positive, recommendation is for anticoagulation in addition to antiplatelet therapy. Pt should cont to follow with Neurology. Will order labs, further recs to follow. Doctor attests: I performed a history and physical examination of this patient, developed impression and plan of care. Discussed with dictator. I agree with dictators note, documented as a scribe.
[2022-01-05] MEDS: PANTOPRAZOLE 40 MG TABLET PO SCH (20:07)
[2022-01-05] MEDS ORDERED: lisinopriL 10 MG TAB PO SCH (21:00)
[2022-01-05] MEDS ORDERED: ATORVASTATIN 40 MG TAB PO SCH (21:00)
[2022-01-05] MEDS ORDERED: NON FORMULARY DRUG (Amlodipine Besylate/Benazepril [Amlodipine Besylate/Benazepril 5-10 Mg PO SCH (21:00)
[2022-01-05] MEDS ORDERED: amLODIPine 5 MG TAB PO SCH (21:00)
[2022-01-06 01:54] LABS: Cardiolipin Ab IgG Interp NEGATIVE (NEGATIVE); Cardiolipin Ab IgM Interp NEGATIVE (NEGATIVE); Cardiolipin IgA Antibody <2.0 U/mL; Cardiolipin IgM Antibody 2.5 U/mL
[2022-01-06] MEDS: ASPIRIN 325 MG TAB PO SCH (08:41)
[2022-01-06] MEDS: CLOPIDOGREL 75 MG TAB PO SCH (08:41)
[2022-01-06] MEDS: HEPARIN SODIUM,PORCINE/PF 5,000 UNIT/0.5 ML SYRINGE SQ SCH (08:41)
--- NOTE | 2022-01-06 11:02 | P.PN ---
Subjective Progress Note Date: 01/06/22 Hospital course: Patient is a very pleasant 41-year-old female with a past medical history of hypertension and previous CVA in 2019 with resolved left-sided weakness. She presented to the emergency department 01/04/22 with a chief complaint of left lower extremity weakness/heaviness. Patient reports while at work she noticed that her legs felt heavy or and was more difficult to less than normal. She reports that the physician she was working with recommended she come to the emergency department for evaluation secondary to her history of hypertension and CVA as well as family history significant for cerebrovascular and cardiovascular disease. She denied experiencing any numbness/tingling in her extremities reports left leg simply felt heavier than usual. She states she was previously on Lipitor and aspirin from her previous CVA, but stopped taking after Covid hip. Patient reports she does follow with the PCP and has been started on multiple medications for control of her blood pressure and is currently on amlodipine/benazepril which has been successful in maintaining normotensive pressures. Patient underwent full evaluation in the emergency department. CBC, coags, and CMP unremarkable. Lipid profile also unremarkable. TSH 0.361 with free T4 1.14. MELISSA screen was negative EKG completed showing normal sinus rhythm at 70 bpm with no noted T-wave or ST abnormalities showing no signs of acute ischemia. CT head negative for acute intercranial process. CTA head and neck were also unremarkable showing no evidence of high-grade stenosis or intercranial aneurysm. Carotid Doppler unremarkable reporting 0% stenosis in bilateral internal carotid arteries. Patient admitted under our service as a consultation to neurology and cardiology. MRI completed negative for acute intercranial process revealing nonspecific white matter demyelination questionable clinical significance consistent with some mastoid inflammatory changes. Echocardiogram with bubble study revealing normal EF 55-60% with trace mitral and tricuspid regurgitation, negative bubble study. Cardiolipin IgG, IgA and anti-cardiolipin IgG and IgA negative. B12 and Folate normal findings, MELISSA negative and double strand DNA antibody also negative. Anti-thrombin III anti gen 79% and anti-thrombin III activity 6% this can be associated with increased risk of thromboembolism. Beta-2 glycoprotein has been ordered and pending results. Discussed with oncology if beta 2 glycoprotein abnormal, patient will require lifelong anticoagulation. At this time patient to remain on aspirin, Plavix, and atorvastatin. Cardiology taking patient for a EMY tomorrow morning. Physical exam: Patient seen and fully evaluated at bedside this morning. She was sitting at the bedside, denied having any complaints or concerns at this time. Patient reports full resolution of previous left lower extremity heaviness/weakness. MRI and echo showing no acute abnormalities. Awaiting a beta-2 glycoprotein results to determine if patient will need to be placed on lifelong anticoagulation, hematology/oncology following. Cardiology planning to take patient for EMY tomorrow morning. Patient is medically stable at this time and will continue with daily aspirin, atorvastatin, and Plavix. Vital signs reviewed and stable. General: Nontoxic, no distress and appears stated age. Derm: Skin warm and dry, normal coloration for ethnicity. Head: Atraumatic, normocephalic and symmetric. Eyes: EOMs intact, no lid lag, and anicteric sclera Mouth: no lip lesions, mucus membranes moist Cardiovascular: regular rate and rhythm with normal S1S2, no murmur, positive posterior tibial pulses bilaterally, and cap refill < 2 seconds. Lungs: Respirations even, regular, and unlabored on room air. Lungs CTA bilaterally, no rhonchi, no rales, no wheezing, and no accessory muscle usage. Abdominal: soft, nontender to palpation, no guarding, no appreciable organomegaly Ext: ROM intact. No gross muscle atrophy, no edema, no contractures. 5 out of 5 strength in bilateral upper and lower extremities. Neuro: Speech clear, face symmetrical and CN II-XII grossly intact with no noted focal neuro deficits Psych: Alert and oriented to person, place, time, and situation. Appropriate and pleasant affect. Assessment and Plan of Care: Left lower extremity weakness, rule out TIA versus CVA History of CVA with previously resolved left-sided deficits -Continue daily aspirin, atorvastatin, and Plavix. -Neurolog following , appreciate further recommendations. -Cardiology following, taking patient for EMY tomorrow morning. -CT head and CTA head and neck unremarkable. -MRI completed negative for acute intercranial process revealing nonspecific white matter demyelination questionable clinical significance consistent with some mastoid inflammatory changes. -Echocardiogram with bubble study revealing normal EF 55-60% with trace mitral and tricuspid regurgitation, negative bubble study. -Cardiolipin IgG, IgA and anti-cardiolipin IgG and IgA negative. B12 and Folate normal findings, MELISSA negative and double strand DNA antibody also negative. -Anti-thrombin III antigen 79% and anti-thrombin III activity 6% this can be associated with increased risk of thromboembolism. Beta-2 glycoprotein has been ordered and pending results. Discussed with hematology/oncology if beta 2 glycoprotein abnormal, patient will require lifelong anticoagulation. -Lipid profile unremarkable. Hemoglobin A1c 5.3%. -Continue neuro checks every 4 hours. Hypertension -Monitor vital signs ancontinue daily medication regimen with amlodipine/benazepril this evening. Low TSH with Free T4 within normal limits. -Recommend outpatient follow-up with PCP with Repeat labs in 6 weeks. CODE STATUS: Full code DVT prophylaxis: Heparin Discussed with: patient and RN Anticipated discharge date: Likely tomorrow after completion of EMY Anticipated discharge place: Home A total of 38 minutes was spent on the care of this complex patient more than 50% of the time was spent in counseling and care coordination. Objective - Vital Signs Vital signs: Vital Signs Temp 97.6 F 01/06/22 08:00 Pulse 76 01/06/22 08:00 Resp 16 01/06/22 08:00 BP 125/75 01/06/22 08:00 Pulse Ox 99 01/06/22 08:00 FiO2 Intake & Output 01/05/22 01/06/22 01/06/22 18:59 06:59 18:59 Intake Total 440 Balance 440 Intake: Oral 440 Other: Voiding Method Toilet # Voids 2 - Labs CBC & Chem 7: 01/04/22 11:02 01/04/22 11:02 Labs: Abnormal Lab Results - Last 24 Hours (Table) 01/04/22 Range/Units 14:07 Antithrombin III Ag 79 L (80 - 120) %
[2022-01-06 11:07] VITALS: TEMP 97.9
[2022-01-06] MEDS ORDERED: fentaNYL (PF) 50 MCG/ML 2 ML AMP ONE (11:47)
[2022-01-06] MEDS: BENZOCAINE SPRAY 1 CAN MUCOUS MEM ONE ×2 (12:05→12:09)
[2022-01-06] MEDS ORDERED: MIDAZOLAM 2 MG/2 ML VIAL IVP ONE ×2 (12:10→12:12)
[2022-01-06] MEDS: fentaNYL (PF) 50 MCG/ML 2 ML AMP IVP ONE ×2 (12:10→12:12)
[2022-01-06] MEDS ORDERED: SODIUM CHLORIDE 0.9% 500 ML 500 ML IV ONE (12:10)
[2022-01-06 12:25] VITALS: RESP 18
[2022-01-06 12:26] VITALS: BP 116/62; PULSE 97
[2022-01-06 12:44] LABS: Von Willebrand Factor Antigen 76 % (52-214)
--- NOTE | 2022-01-06 12:56 | P.PN ---
Subjective Progress Note Date: 01/06/22 HISTORY OF PRESENT ILLNESS: This is a 41-year-old female who is admitted to the hospital with left-sided weakness. Patient examined this morning by Dr. Cash. Her left sided weakness has improved. No complaints of chest pain or pressure. No SOB. Vital signs are stable. Echocardiogram completed revealing ejection fraction 55-60% with negative bubble study. PHYSICAL EXAM: VITAL SIGNS: Reviewed. GENERAL: Well-developed in no acute distress. NECK: Supple. No JVD or thyromegaly LUNGS: Respirations even and unlabored. Lungs essentially clear to auscultation bilaterally. HEART: Regular rate and rhythm. S1 and S2 heard. EXTREMITIES: Normal range of motion. No clubbing or cyanosis. Peripheral pulses intact. No lower extremity edema ASSESSMENT: Left sided weakness Hypertension Low anti-thrombin III, hematology following PLAN: Continue current cardiac medications Continue telemetry monitoring Continue to monitor blood pressure Patient to undergo EMY today with Dr. Singh Nurse practitioner note has been reviewed by physician. Signing provider agrees with the documented findings, assessment, and plan of care. Objective - Vital Signs Vital signs: Vital Signs Temp 97.9 F 01/06/22 11:07 Pulse 97 01/06/22 12:20 Resp 18 01/06/22 12:20 BP 116/62 01/06/22 12:20 Pulse Ox 97 01/06/22 12:20 FiO2 Intake & Output 01/05/22 01/06/22 01/06/22 18:59 06:59 18:59 Intake Total 440 100 Balance 440 100 Intake: IV 100 Oral 440 Other: Voiding Method Toilet # Voids 2 - Labs CBC & Chem 7: 01/04/22 11:02 01/04/22 11:02 Labs: Abnormal Lab Results - Last 24 Hours (Table) 01/04/22 Range/Units 14:07 Antithrombin III Ag 79 L (80 - 120) %
--- NOTE | 2022-01-06 13:25 | P.PN ---
Subjective Progress Note Date: 01/06/22 The patient is seen at bedside and is back to baseline. Denies of any new neurological deficits. Objective - Vital Signs Vital signs: Vital Signs Temp 97.9 F 01/06/22 11:07 Pulse 97 01/06/22 12:20 Resp 18 01/06/22 12:20 BP 116/62 01/06/22 12:20 Pulse Ox 97 01/06/22 12:20 FiO2 Intake & Output 01/05/22 01/06/22 01/06/22 18:59 06:59 18:59 Intake Total 440 100 Balance 440 100 Intake: IV 100 Oral 440 Other: Voiding Method Toilet # Voids 2 - Exam GENERAL: The patient is lying in bed and is not in acute distress. NEUROLOGICAL: Higher mental function: The patient is awake, alert, oriented to self, place and time. Patient is following commands. No aphasia and no neglect. Cranial nerves: The pupils are round, equal and reactive to light and accommodation. Visual silva are full to confrontation throughout. Extraocular movement is intact no nystagmus is noted. Facial sensation is normal to touch throughout. The facial strength is normal throughout. Hearing is normal bilaterally to hand rub. Tongue is midline and moved [id number] without any difficulty. No dysarthria is noted. Shoulder shrug is normal bilaterally. Motor: The strength is 5 over 5 throughout. Normal tone and bulk. Cerebellum: Normal finger to nose bilaterally. Sensation: Normal to touch throughout. Reflexes (right/left): 2+ throughout. Plantars are downgoing bilaterally. Some other workup in our facility during this hospital visit consisted of: ESR 7 Lipid panel is a triglyceride of 92, cholesterol 165, LDL 73, HDL of 73 Vitamin B12 is 557 folate is 16.70 TSH is 0.361 which is a low but the free T4 is 1.1 for which is within normal limits MELISSA is negative teot-pubicf-ceidybbd is less than 1.0 Anticadiolipid abs, prothrombin [id number] mutation are negative. F Factor antigen is 76 (normal) Lupus anticoagulant is not detected Antithrombin III antigen and activity is minimally/borderline low that antigen is 79 and a normal is between 80-120 antithrombin III activity is 6 and the normal is between 79 07/21/2008 Hemoglobin A1c is 5.[address] of the head is reported as no acute intracranial process. I attempted to review the CT of the head but unable since the getting error message CT angiography of the head and neck was reported as no evidence of dissection of the cervical internal carotid arteries or vertebral arteries or evidence of significant stenosis at the carotid bifurcation. No evidence of high-grade stenosis or intracranial aneurysm. EKG is reported as sinus rhythm. Normal EKG. 2-D echo was reported as normal left ventricle ejection fraction of 55-60%. Negative bubble study. No pericardial effusion. Left atrium is normal in size. MRI of the brain is reported as nonspecific white matter demyelination of questionable clinical significance. It is consistent with some mastoid inflammatory changes. No evidence of subacute brain ischemia. I personally reviewed the MRI of the brain and I felt was on unremarkable for any acute subacute ischemia. - Labs CBC & Chem 7: 01/04/22 11:02 01/04/22 11:02 Labs: Abnormal Lab Results - Last 24 Hours (Table) 01/04/22 Range/Units 14:07 Antithrombin III Ag 79 L (80 - 120) % Assessment and Plan Assessment: Transient ischemic attack (Left lower extremity weakness and numbness). 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 But appears hypercoagulable. Had episode in 2019, 2 miscarriages, father had stroke at young age. Low antithrombin III. History of stroke in 08/2018 (left sided weakness without residual deficits) Hypertension GERD Medication Non-compliance (ASA and Lipitor) Young stroke in father (in his 50's y/o and he had [place] in his 40's) Plan: Continue aspirin 325 daily and Plavix 75 mg daily which were started during this hospital visit. Patient to be on dual antiplatelets for 21 days and after 21 days stop Plavix but continue aspirin indefinitely. Continue Lipitor 40 mg daily at bedtime for secondary stroke prophylaxis. I recommend rest of the hypercoagulable workup to be performed as an outpatient. Patient had antithrombin III level that was low. Hematology is on board and will get their perspective regarding this but I recommend repeated as an outpatient within 4-6 weeks to rule false abnormality during acute stroke phase. Hematology is on board Every 4 hours neuro checks Continue on cardiac monitoring PT OT is consulted Cardiology is planning for EMY as inpatient. If all work-up are negative even hypercoagulable as outpatient then consider 30days event monitor. Cardiology team is on board We'll defer the rest of medical management to primary team For DVT prophylaxis Continue subcu heparin 5000 units every 12 hours Recommend the patient follow up with a neurologist as an outpatient within 1-2 weeks The plan is discussed with the patient and her significant other who is at bedside. Steven Villagomez M.D. Neuro-hospital Time with Patient: Less than 30
--- NOTE | 2022-01-06 13:36 | P.DS ---
Providers Date of admission: 01/04/22 13:05 Expected date of discharge: 01/06/22 Attending physician: Lily Kim DO Consults: 01/04/22 12:59 Consult Physician Routine Consulting Provider: Steven Villagomez Consult Reason/Comments: cva Do you want consulting provider notified?: Yes 01/04/22 13:55 Consult Physician Routine Consulting Provider: Marco Antonio Way Consult Reason/Comments: CVA young patient HTN history neuro requested Do you want consulting provider notified?: Yes 01/04/22 13:56 Consult Physician Routine Consulting Provider: Uzair Madrigal Consult Reason/Comments: CVA young patient unknow etiology neuro request Do you want consulting provider notified?: Yes Primary care physician: Gómez Saenz MD Hospital Course: Discharge Diagnosis: Left lower extremity weakness /heaviness with history of previous CVA. 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 Cardiology recommending Holter/event monitor. -Continue daily aspirin, atorvastatin, and Plavix. -CT head and CTA head and neck unremarkable. -MRI completed negative for acute intercranial process revealing nonspecific white matter demyelination questionable clinical significance consistent with some mastoid inflammatory changes. -Echocardiogram with bubble study revealing normal EF 55-60% with trace mitral and tricuspid regurgitation, negative bubble study. -Cardiolipin IgG, IgA and anti-cardiolipin IgG and IgA negative. B12 and Folate normal findings, MELISSA negative and double strand DNA antibody also negative. Insufficient Anti-thrombin III antigen 79% and insufficient anti-thrombin III activity 6% this can be associated with increased risk of thromboembolism. Beta-2 glycoprotein has been ordered and pending results. Discussed with hematology/oncology if beta 2 glycoprotein abnormal, patient will require lifelong anticoagulation. Hypertension. Monitor vital signs ancontinue daily medication regimen with amlodipine/benazepril this evening. Low TSH with Free T4 within normal limits. Recommend outpatient follow-up with PCP with Repeat labs in 6 weeks. Hospital Course: Patient is a very pleasant 41-year-old female with a past medical history of hypertension and previous CVA in 2019 with resolved left-sided weakness. She presented to the emergency department 01/04/22 with a chief complaint of left lower extremity weakness/heaviness. Patient reports while at work she noticed that her legs felt heavy or and was more difficult to less than normal. She reports that the physician she was working with recommended she come to the emergency department for evaluation secondary to her history of hypertension and CVA as well as family history significant for cerebrovascular and cardiovascular disease. She denied experiencing any numbness/tingling in her extremities reports left leg simply felt heavier than usual. She states she was previously on Lipitor and aspirin from her previous CVA, but stopped taking after Covid hip. Patient reports she does follow with the PCP and has been started on multiple medications for control of her blood pressure and is currently on amlodipine/benazepril which has been successful in maintaining normotensive pressures. Patient underwent full evaluation in the emergency department. CBC, coags, and CMP unremarkable. Lipid profile also unremarkable. TSH 0.361 with free T4 1.14. MELISSA screen was negative EKG completed showing normal sinus rhythm at 70 bpm with no noted T-wave or ST abnormalities showing no signs of acute ischemia. CT head negative for acute intercranial process. CTA head and neck were also unremarkable showing no evidence of high-grade stenosis or intercranial aneurysm. Carotid Doppler unremarkable reporting 0% stenosis in bilateral internal carotid arteries. Patient admitted under our service as a consultation to neurology and cardiology. MRI completed negative for acute intercranial process revealing nonspecific white matter demyelination questionable clinical significance consistent with some mastoid inflammatory changes. Echocardiogram with bubble study revealing normal EF 55-60% with trace mitral and tricuspid regurgitation, negative bubble study. Prothrombin [id number] mutation negative. Cardiolipin IgG, IgA and anti-cardiolipin IgG and IgA negative. B12 and Folate normal findings, MELISSA negative and double strand DNA antibody also negative. Anti-thrombin III antigen 79% and anti-thrombin III activity 6% this can be associated with increased risk of thromboembolism. Beta-2 glycoprotein has been ordered and pending results. Discussed with oncology if beta 2 glycoprotein abnormal, patient will require lifelong anticoagulation. At this time patient to remain on aspirin, Plavix, and atorvastatin. Cardiology took the patient for a EMY, which was reported to be negative for PFO or any acute abnormalities. Cardiology recommending outpatient follow-up in our office in 1-2 weeks for placement of Holter/event monitor. Physical exam: Vital signs reviewed and stable. General: Nontoxic, no distress and appears stated age. Derm: Skin warm and dry, normal coloration for ethnicity. Head: Atraumatic, normocephalic and symmetric. Eyes: EOMs intact, no lid lag, and anicteric sclera Mouth: no lip lesions, mucus membranes moist Cardiovascular: regular rate and rhythm with normal S1S2, no murmur, positive posterior tibial pulses bilaterally, and cap refill < 2 seconds. Lungs: Respirations even, regular, and unlabored on room air. Lungs CTA bilaterally, no rhonchi, no rales, no wheezing, and no accessory muscle usage. Abdominal: soft, nontender to palpation, no guarding, no appreciable organomegaly Ext: ROM intact. No gross muscle atrophy, no edema, no contractures. 5 out of 5 strength in bilateral upper and lower extremities. Neuro: Speech clear, face symmetrical and CN II-XII grossly intact with no noted focal neuro deficits Psych: Alert and oriented to person, place, time, and situation. Appropriate and pleasant affect. A total of 38 minutes of time were spent preparing this complex discharge summary. Pt was discharged on 01/06/22 at 1:43 PM Kike Cobian NP rendered care for this patient independently, reviewed the findings and plan as documented in the note above. I did not physically speak with or examine the patient on this date. Patient Condition at Discharge: Stable Plan - Discharge Summary Discharge Rx Participant: Yes New Discharge Prescriptions: New Aspirin 81 mg PO DAILY 30 Days #30 tab Atorvastatin [Lipitor] 40 mg PO HS 30 Days #30 tab Clopidogrel [Plavix] 75 mg PO DAILY 21 Days #21 tab Continue Esomeprazole Magnesium [NexIUM] 20 mg PO HS amLODIPine BESYLATE/BENAZEPRIL [amLODIPine BESYLATE/BENAZEPRIL 5-10 MG] 1 cap PO HS Discontinued Meloxicam [Mobic] 15 mg PO HS Discharge Medication List Esomeprazole Magnesium [NexIUM] 20 mg PO HS 04/29/20 [History] amLODIPine BESYLATE/BENAZEPRIL [amLODIPine BESYLATE/BENAZEPRIL 5-10 MG] 1 cap PO HS 04/29/20 [History] Aspirin 81 mg PO DAILY 30 Days #30 tab 01/06/22 [Rx] Atorvastatin [Lipitor] 40 mg PO HS 30 Days #30 tab 01/06/22 [Rx] Clopidogrel [Plavix] 75 mg PO DAILY 21 Days #21 tab 01/06/22 [Rx] Follow up Appointment(s)/Referral(s): Aubrey Cash MD [STAFF PHYSICIAN] - 1 Week Jaylan James MD [STAFF PHYSICIAN] - 1 Week (Anti-thrombin III antigen 79% and anti- thrombin III activity 6% this can be associated with increased risk of thromboembolism. Beta-2 glycoprotein has been ordered and pending results. Discussed with hematology/oncology if beta 2 glycoprotein abnormal, patient will require lifelong anticoagulation) Gómez Saenz MD [Primary Care Provider] - 1-2 days Steven Villagomez MD [STAFF PHYSICIAN] - 2 Weeks Patient Instructions/Handouts: Transient Ischemic Attack (DC) Activity/Diet/Wound Care/Special Instructions: Activity: As tolerated. Take breaks as needed. Diet: Heart healthy and carb consistent diet. Avoid salts, or foods with hidden salts such as canned or boxed foods and frozen dinners. Extra salt makes your heart work harder and traps the fluid in your body for longer. Special Instructions: Take all of your medications as directed and remember to keep all of your doctor's appointments and follow-up as needed. As we discussed, hematology will notify you once results of beta II glycoprotein result if you need to be placed on long-term anticoagulation. Thank you for allowing us to participate in your care, it was truly a pleasure having you for our patient!!! Enjoy every minute of your vacation in [place]!!! Also please schedule appointment with Dr. Villagomez, neurologist upon returning from vacation as we discussed. Contact information: [phone] Discharge Disposition: HOME SELF-CARE
[2022-01-06 13:38] LABS: Basophils % (A) 1 %; Eosinophils # (A) 0.2 k/uL (0-0.7); Eosinophils % (A) 3 %; HCT 35.4 % (34.0-46.0); HGB 11.9 gm/dL (11.4-16.0); Lymphocytes # (A) 1.5 k/uL (1.0-4.8); Lymphocytes % (A) 29 %; MCH 34.3 pg (25.0-35.0); MCHC 33.6 g/dL (31.0-37.0); MCV 102.4 fL (80.0-100.0); Macrocytosis Slight; Mean Platelet Volume 7.3; Monocytes # (A) 0.3 k/uL (0-1.0); Monocytes % (A) 6 %; Neutrophils # (A) 3.2 k/uL (1.3-7.7); Neutrophils % (A) 59 %; Platelet Count 203 k/uL (150-450); RBC 3.46 m/uL (3.80-5.40); RDW 12.3 % (11.5-15.5); WBC 5.3 k/uL (3.8-10.6)
[2022-01-06 13:48] LABS: ALT 9 U/L (4-34); AST 19 U/L (14-36); African American GFR (CKD) >90 (>60 ml/min/1.73 sqM); Albumin 3.7 g/dL (3.5-5.0); Alkaline Phosphatase 40 U/L (38-126); Anion Gap 6 mmol/L; Blood Urea Nitrogen 11 mg/dL (7-17); Calcium 8.1 mg/dL (8.4-10.2); Carbon Dioxide 27 mmol/L (22-30); Chloride 105 mmol/L (98-107); Glucose 90 mg/dL (74-99); Non-African American GFR(CKD) >90 (>60 ml/min/1.73 sqM); Potassium 3.5 mmol/L (3.5-5.1); Sodium 138 mmol/L (137-145); Total Bilirubin 0.2 mg/dL (0.2-1.3); Total Protein 6.3 g/dL (6.3-8.2)
--- NOTE | 2022-01-06 16:57 | P.TEE ---
Description of Procedure(s): Procedure performed: Transesophageal Echocardiogram with color flow doppler Moderate conscious sedation: Moderate conscious sedation was supplied by myself Complications: none Indications: Cryptogenic stroke PROCEDURE: After the risks, benefits and alternatives of the above mentioned procedure was explained in detail with the patient, informed consent was obtained. Patient was brought to the lab in a fasting state. Patient was given sedation with Versed and Fentanyl under my direct supervision. The throat was sprayed with Hurricane to anesthetize the throat. A lubricated Omni probe was then introduced into the esophagus and stomach and multiple views were obtained. 2D echo with color flow doppler. Agitated saline bubbles were injected to assess for any intra-atrial shunt. The probe was then removed. Patient tolerated the procedure well. Patient was transferred to the post procedure area in stable and satisfactory condition. FINDINGS: 1. The aortic valve is tricuspid with no significant aortic stenosis or aortic insufficiency. 2. The mitral valve appears be normal with no mitral regurgitation. 3. Tricuspid valve is normal with no tricuspid regurgitation. 4. The interatrial septum is intact. No evidence of PFO. 5. Left atrial appendage is free of clot. 6. Left ventricular size and function are normal with left ventricular ejection fraction 55%
--- NOTE | 2022-01-07 13:43 | CDI ---
Documentation Clarification Form Date: 01/06/2022 12:51:00 PM From: Cassie Larkin RN, CCDS Admit Date: 01/04/2022 01:05:00 PM Patient Name: Renee Syde Visit Number: [id number] Discharge Date: 01/06/2022 02:42:00 PM ATTENTION: The Clinical Documentation Specialists (CDI) and [facility] Coding Staff appreciate your assistance in clarifying documentation. Please respond to the clarification below the line at the bottom and electronically sign. The CDI & [facility] Coding staff will review the response and follow-up if needed. Please note: Queries are made part of the Legal Health Record. If you have any questions, please contact the author of this message via ITS. Dr. Lily Kim The patients principal diagnosis the diagnosis that was chiefly responsible for the admission - has not been clearly identified and clarification is requested. The patient presented with left lower extremity weakness, heaviness. 720 Neurology progress note: Transient ischemic attack (Left lower extremity weakness and numbness). 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 But appears hypercoagulable. 01/06 Cardiology progress note: Left sided weakness. Hypertension. Low anti- thrombin III History/Risk factors: CVA, TIA, Hypertension Clinical Indicators: 41-year-old female with complaints of left lower extremity weakness, heaviness. Lab findings: 01/04 CT Brain: No acute intra cranial process. 01/04 CT angiography of head and neck: no evidence of dissection of the cervical internal carotid arteries or vertebral arteries or evidence of significant stenosis at the carotid bifurcation. No evidence of high-grade stenosis or intracranial aneurysm. 01/05 MRI: Nonspecific white matter demyelination of questionable clinical significance. It is consistent with some mastoid inflammatory changes. No evidence of subacute brain ischemia. 01/05 ECHO: normal left ventricle ejection fraction of 55-60% Negative bubble study. 01/04 Vital Signs: 140/85 72 20 98.1 100 % RA 01/04 Labs: WBC 5.5, UA small Leukocyte Esterase, 01/06 EMY: The aortic valve is tricuspid with no significant aortic stenosis or aortic insufficiency. The mitral valve, tricuspid valve are normal. Left atrial appendage is free of clot. No evidence of PFO. Left ventricular size and function are normal with EF 55% Treatment: Cardiac/Telemetry monitoring ASA, 325 PO Daily, Plavix 75 MG PO Daily, (21 days), Lipitor 40MG PO Daily Every 4 hours neuro checks, PT/OT Consult, In your professional opinion, can you please clarify which diagnosis, after study, was the reason chiefly responsible for the admission? [ ] CVA [X ] TIA (further specify if known) [ ] Other, please specify [ ] Unable to determine (Template Last Revised: August 2020) MTDD
--- NOTE | 2022-01-07 13:50 | P.PN ---
Subjective Progress Note Date: 01/06/22 Objective - Vital Signs Vital signs: Vital Signs Temp 97.9 F 01/06/22 11:07 Pulse 97 01/06/22 12:20 Resp 18 01/06/22 12:20 BP 116/62 01/06/22 12:20 Pulse Ox 97 01/06/22 12:20 FiO2 Intake & Output 01/05/22 01/06/22 01/06/22 18:59 06:59 18:59 Intake Total 440 100 Balance 440 100 Intake: IV 100 Oral 440 Other: Voiding Method Toilet # Voids 2 - Exam - Constitutional General appearance: average body habitus, cooperative, no acute distress - EENT Eyes: anicteric sclerae, EOMI ENT: hearing grossly normal, normal oropharynx - Neck Neck: no lymphadenopathy - Respiratory Respiratory: bilateral: CTA - Cardiovascular Rhythm: regular Heart sounds: normal: S1, S2 Abnormal Heart Sounds: no systolic murmur, no diastolic murmur, no rub, no S3 Gallop, no S4 Gallop, no click, no other leg Peripheral Edema: bilateral: None - Gastrointestinal General gastrointestinal: no absent bowel sounds, no decreased bowel sounds, no distended, no hepatomegaly, no hyperactive bowel sounds, normal bowel sounds, no organomegaly, no rigid, no scaphoid, soft, no splenomegaly, no tenderness, no umbilical hernia, no ventral hernia - Integumentary Integumentary: normal - Neurologic Neurologic: CNII-XII intact - Psychiatric Psychiatric: A&O x's 3, appropriate affect, intact judgment & insight - Labs CBC & Chem 7: 01/04/22 11:02 01/04/22 11:02 Labs: Abnormal Lab Results - Last 24 Hours (Table) 01/04/22 Range/Units 14:07 Antithrombin III Ag 79 L (80 - 120) % Assessment and Plan Plan: Comments: CT angio report reviewed CT Scan - head: report reviewed MRI - head: report reviewed Assessment and Plan (1) Cerebrovascular accident (CVA) Current Visit: Yes Status: Acute Priority: High Code(s): I63.9 - CEREBRAL INFARCTION, UNSPECIFIED SNOMED Code(s): 425753649 Plan: Await the results of Beta 2 glycoprotein and Cardiolipins, and plan to follow-up in office with Dr. James After discharge. If neg resume/cont ASA/Plavix
== END 2022-01-06 14:42 | disposition home or self-care (01) | DRG 69 ==
LOC: EC 10:25 → 3SCARD 13:05
PROVIDERS: ADMIT Internal Medicine; ATTEND Internal Medicine
PROC: B246ZZ4 Ultrasonography of Right and Left Heart, Transesophageal (ICD-10-PCS; principal; 2022-01-06 16:30)
DX: G45.9 Transient cerebral ischemic attack, unspecified (principal); G81.94 Hemiplegia, unspecified affecting left nondominant side; I10 Essential (primary) hypertension; M21.372 Foot drop, left foot; D75.89 Other specified diseases of blood and blood-forming organs; K21.9 Gastro-esophageal reflux disease without esophagitis; Z79.02 Long term (current) use of antithrombotics/antiplatelets; Z79.82 Long term (current) use of aspirin; Z82.3 Family history of stroke; Z82.49 Family history of ischemic heart disease and other diseases of the circulatory system; T39.016A Underdosing of aspirin, initial encounter; T46.6X6A Underdosing of antihyperlipidemic and antiarteriosclerotic drugs, initial encounter; Z91.128 Patient's intentional underdosing of medication regimen for other reason; H70.90 Unspecified mastoiditis, unspecified ear; Z79.1 Long term (current) use of non-steroidal anti-inflammatories (NSAID); Z79.899 Other long term (current) drug therapy
CPT/HCPCS: 36415; 70450; 70496; 70498; 70551; 80053; 80061; 81001; 81240; 81241; 82607; 82746; 83036; 84439; 84443; 85025; 85246; 85300; 85301; 85610; 85613; 85652; 85730; 86038; 86146; 86147; 86225; 93005; 93306; 93312; 93320; 93325; 93880; 96360; 96361; 99285

== ENCOUNTER → 2022-03-03 | Outpatient (CLI) | payer MEDICAID ==
[2022-03-04 09:59] LABS: Anti-Thrombin III Antigen 103 % (80 - 120)
[2022-03-05 09:26] LABS: Anti-Thrombin III Activity 62 % (79-109)
[2022-03-05 10:24] LABS: Protein C (Activity) 79 % (71-138)
== END | disposition home or self-care (01) ==
LOC: LABWHC1 07:29
PROVIDERS: ATTEND Internal Medicine Hematology & Oncology
DX: I10 Essential (primary) hypertension (principal)
CPT/HCPCS: 36415; 81240; 85300; 85301; 85303; 85306; 85415; 85420; 88184; 88185

== ENCOUNTER → 2022-05-27 | Outpatient (CLI) | payer MEDICAID | END | disposition home or self-care (01) | LOC: LABWHC1 15:00 | PROVIDERS: ATTEND Internal Medicine Hematology & Oncology | DX: I10 Essential (primary) hypertension (principal); I67.89 Other cerebrovascular disease; D68.59 Other primary thrombophilia | CPT/HCPCS: 36415; 85300; 85301 ==

== ENCOUNTER → 2022-10-13 | Outpatient (CLI) | payer MEDICAID ==
[2022-10-13 11:18] LABS: Basophils # (A) 0.06 X 10*3/uL (0.00-0.10); Basophils % (A) 1.2 %; HCT 38.2 % (37.2-46.3); HGB 12.3 g/dL (12.0-15.0); Immature Grans, Automated 0.2 %; Lymphocytes # (A) 1.59 X 10*3/uL (0.90-5.00); Lymphocytes % (A) 31.9 %; MCH 31.5 pg (27.0-32.0); MCHC 32.2 g/dL (32.0-37.0); MCV 97.9 fL (80.0-97.0); Mean Platelet Volume 9.9 fL (9.5-12.2); NRBC Per 100 WBC 0 /100 WBCS (0.0-0.0); Neutrophils # (A) 2.82 X 10*3/uL (1.80-7.70); Neutrophils % (A) 56.7 %; Platelet Count 325 X 10*3/uL (140-440); RDW 14.1 % (11.5-14.5); WBC 4.98 X 10*3/uL (4.50-10.00)
[2022-10-13 11:29] LABS: ALT 18 U/L (8-44); AST 21 U/L (13-35); African American GFR (CKD) 97.3 (60.0-200.0); Albumin 4.8 g/dL (3.8-4.9); Albumin/Globulin Ratio 1.85 (1.60-3.17); Alkaline Phosphatase 43 U/L (41-126); BUN/Creat Ratio 13.57 Ratio (12.00-20.00); Blood Urea Nitrogen 11.6 mg/dL (9.0-27.0); Calcium 9.6 mg/dL (8.7-10.3); Carbon Dioxide 28.7 mmol/L (20.0-27.5); Chloride 101 mmol/L (96-109); Chol/HDL Ratio 1.57 Ratio; Globulin 2.6 g/dL (1.6-3.3); Glucose 98 mg/dL (70-110); LDL Cholesterol,Calculated 41.3 mg/dL (0.0-131.0); Non-African American GFR(CKD) 83.9 (60.0-200.0); Potassium 4.2 mmol/L (3.5-5.5); Sodium 139 mmol/L (135-145); Total Protein 7.4 g/dL (6.2-8.2)
== END | disposition home or self-care (01) ==
LOC: LABWHC1 07:56
PROVIDERS: ATTEND Family Medicine
DX: I10 Essential (primary) hypertension (principal); D64.9 Anemia, unspecified
CPT/HCPCS: 36415; 80053; 80061; 85025

== ENCOUNTER → 2022-10-28 | Outpatient (CLI) | payer MEDICAID ==
--- NOTE | 2022-10-28 19:34 | MM ---
Reason for Exam: Screening (asymptomatic). Last mammogram was performed 1 year(s) and 1 month(s) ago. Patient History: Menarche at age 12. Estrogen for 2 years from age 33 until age 35. Paternal grandmother had ovarian cancer. Last menstrual period: 10/24/2022 Risk Values: Chelita 5 year model risk: 0.5%. NCI Lifetime model risk: 7.2%. Prior Study Comparison: 09/23/2021 Bilateral Screening Mammogram, [facility]. Tissue Density: The breast tissue is heterogeneously dense. This may lower the sensitivity of mammography. Findings: Analyzed By CAD. There is no suspicious group of microcalcifications or new suspicious mass in either breast. Overall Assessment: Benign, BI-RAD 2 Management: Screening Mammogram of both breasts in 1 year. . Patient should continue monthly self-breast exams. A clinical breast exam by your physician is recommended on an annual basis. This exam should not preclude additional follow-up of suspicious palpable abnormalities. Note on Chelita scores and lifetime risk: 1. A Chelita score greater than 3% is considered moderate risk. If this is the case, consider specialist referral to assess eligibility for a risk reducing agent. 2. If overall lifetime risk for the development of breast cancer is 20% or higher, the patient may qualify for future screening with alternating mammogram and breast MRI. Electronically signed and approved by: Annalee Reardon M.D. Radiologist
== END | disposition home or self-care (01) ==
LOC: RADMAMWWP 06:59
PROVIDERS: ATTEND Family Medicine
DX: Z12.31 Encounter for screening mammogram for malignant neoplasm of breast (principal)
CPT/HCPCS: 77063; 77067

== ENCOUNTER → 2022-12-17 | Outpatient (CLI) | payer MEDICAID | END | disposition home or self-care (01) | LOC: LABWHC1 11:01 | PROVIDERS: ATTEND Internal Medicine Hematology & Oncology | DX: I10 Essential (primary) hypertension (principal); I67.89 Other cerebrovascular disease; D68.59 Other primary thrombophilia | CPT/HCPCS: 36415; 85300; 85301 ==

== ENCOUNTER → 2023-11-30 | Outpatient (CLI) | payer MEDICAID ==
[2023-11-30 10:26] LABS: HCT 37.1 % (37.2-46.3); HGB 11.7 g/dL (12.0-15.0); MCH 31.4 pg (27.0-32.0); MCHC 31.5 g/dL (32.0-37.0); MCV 99.5 FL (80.0-97.0); Mean Platelet Volume 9.8 FL (9.5-12.2); NRBC Per 100 WBC 0 X 10*3/uL (0.00-0.01); Platelet Count 246 X 10*3/uL (140-440); RBC 3.73 X 10*6/uL (4.10-5.20); RDW 13.6 % (11.5-14.5)
[2023-11-30 18:49] LABS: ALT 16 U/L (8-44); AST 20 U/L (13-35); Albumin 4.6 g/dL (3.8-4.9); Albumin/Globulin Ratio 1.77 Ratio (1.60-3.17); Alkaline Phosphatase 49 U/L (41-126); BUN/Creat Ratio 20.71 Ratio (12.00-20.00); Blood Urea Nitrogen 14.5 mg/dL (9.0-27.0); Carbon Dioxide 23.5 mmol/L (21.6-31.8); Chloride 102 mmol/L (96-109); Globulin 2.6 g/dL (1.6-3.3); Glucose 91 mg/dL (70-110); Magnesium 2.2 mg/dL (1.5-2.4); Potassium 4.6 mmol/L (3.5-5.5); Sodium 138 mmol/L (135-145); T4, Free (Free Thyroxine) 1.18 ng/dL (0.80-1.80); Total Bilirubin 0.3 mg/dL (0.3-1.2); Total Protein 7.2 g/dL (6.2-8.2)
[2023-11-30 19:11] LABS: Follicle Stimulating Hormone 5.9 mIU/mL
== END | disposition home or self-care (01) ==
LOC: LABWHC1 07:06
PROVIDERS: ATTEND Obstetrics & Gynecology
DX: N93.8 Other specified abnormal uterine and vaginal bleeding (principal); N95.1 Menopausal and female climacteric states; N95.9 Unspecified menopausal and perimenopausal disorder; R37 Sexual dysfunction, unspecified
CPT/HCPCS: 36415; 80053; 82306; 82607; 82670; 83001; 83735; 84144; 84403; 84439; 84443; 84481; 85027

== ENCOUNTER → 2023-12-07 | Outpatient (CLI) | payer MEDICAID ==
--- NOTE | 2023-12-07 21:09 | US ---
EXAMINATION TYPE: US pelvic complete DATE OF EXAM: 12/07/2023 COMPARISON: NONE CLINICAL INDICATION: Female, 43 years old with history of R19.09 OTHER INTRA ABDOMINAL AND PELVIC SWE LLING; Pt states physician felt possible mass LLQ on examination TECHNIQUE: Transabdominal (TA). Transabdominal sonographic images of the pelvis were acquired. Date of LMP: 4 weeks ago EXAM MEASUREMENTS: Uterus: 12.8 x 5.2 x 6.7 cm Endometrial Stripe: 1.4 cm Right Ovary: 2.6 x 1.7 x 2.4 cm Left Ovary: 2.9 x 2.3 x 3.0 cm 1. Uterus: Anteverted Enlarged with multiple (up to 4) possible fibroids. Largest two measured: 1)- pedunculated, right uterine fundus= 6.6 x 5.9 x 7.6 cm 2)- pedunculated, left uterine fundus= 6.6 x 4.9 x 5.3 cm -Two smaller fibroids with one at uterine fundus and the other within the posterior uterine body 2. Endometrium: wnl 3. Right Ovary: wnl 4. Left Ovary: wnl 5. Bilateral Adnexa: wnl 6. Posterior cul-de-sac: wnl Endometrium is within normal limits. Both ovaries appear unremarkable. No free fluid. Multiple hetero genous fibroids identified within the uterus. There are 2 large pedunculated fibroids bilaterally. Pu nctate echogenic floating foci within the urinary bladder. IMPRESSION: 1. Fibroid changes of the uterus with at least 4 distinct fibroids identified. There are 2 peduncula dinesh fibroids identified with largest measuring up to 7.6 cm. 2. Nonspecific debris within the urinary bladder. Correlate with urinalysis for cystitis.
== END | disposition home or self-care (01) ==
LOC: RADUSWWP 15:25
PROVIDERS: ATTEND Obstetrics & Gynecology
DX: R19.09 Other intra-abdominal and pelvic swelling, mass and lump (principal); D25.9 Leiomyoma of uterus, unspecified
CPT/HCPCS: 76856

== ENCOUNTER 2024-02-24 04:00 | Emergency (ER) | payer MEDICAID ==
--- NOTE | 2024-02-24 04:49 | ED ---
Weakness HPI <Rene Ortiz - Last Filed: 02/24/24 08:49> - General Source: patient, family, RN notes reviewed, old records reviewed Mode of arrival: wheelchair Limitations: no limitations - History of Present Illness MD Complaint: generalized weakness, lack of energy, difficulty walking -: hour(s) Location: generalized Severity: severe Severity scale (1-10): 10 Quality: tingling, numbness Consistency: constant Improves with: none Worsens with: none <Prince Castaneda - Last Filed: 02/26/24 22:53> - General Chief complaint: Fall Stated complaint: Fall Time Seen by Provider: 02/24/24 04:01 - History of Present Illness Initial comments: This is a 43-year-old female to the ER for evaluation of a syncopal event prior to arrival patient was in the bathroom going to the bathroom when she woke up on the floor was confused and unresponsive per , heard her fall and hit the ground and brings patient to the ER now for difficulty with bowel movements secondary to uterine fibroids, history of anemia and vaginal bleeding. (Prince Castaneda) - Related Data Home Medications Medication Instructions Recorded Confirmed Esomeprazole Magnesium [NexIUM] 20 mg PO HS 04/29/20 01/04/22 amLODIPine BESYLATE/BENAZEPRIL 1 cap PO HS 04/29/20 01/04/22 [amLODIPine BESYLATE/BENAZEPRIL 5-10 MG] Previous Rx's Medication Instructions Recorded Aspirin 81 mg PO DAILY 30 Days #30 tab 01/06/22 Atorvastatin [Lipitor] 40 mg PO HS 30 Days #30 tab 01/06/22 Clopidogrel [Plavix] 75 mg PO DAILY 21 Days #21 tab 01/06/22 Allergies Allergy/AdvReac Type Severity Reaction Status Date / Time No Known Allergies Allergy Verified 02/24/24 04:15 Review of Systems ROS Other: All systems not noted in ROS Statement are negative. <Rene Ortiz - Last Filed: 02/24/24 08:49> ROS Other: All systems not noted in ROS Statement are negative. <Prince Castaneda - Last Filed: 02/26/24 22:53> ROS Statement: Those systems with pertinent positive or pertinent negative responses have been documented in the HPI. Past Medical History Past Medical History: CVA/TIA, GERD/Reflux, Hypertension Additional Past Medical History / Comment(s): ", hx acute CVA 2019-no residual degenerative arthritis. History of Any Multi-Drug Resistant Organisms: None Reported Past Surgical History: Orthopedic Surgery Additional Past Surgical History / Comment(s): laparoscopy,hysteroscopy, D & C rt knee arthoscopy. Past Anesthesia/Blood Transfusion Reactions: No Reported Reaction Past Psychological History: No Psychological Hx Reported Smoking Status: Never smoker Past Alcohol Use History: Occasional Past Drug Use History: None Reported - Past Family History Mother Family Medical History: No Reported History Father Family Medical History: CVA/TIA, Hypertension, Myocardial Infarction (CT) <Prince Castaneda - Last Filed: 02/26/24 22:53> General Exam Limitations: no limitations General appearance: alert, in no apparent distress, anxious Head exam: Present: atraumatic, normocephalic, normal inspection Eye exam: Present: normal appearance, PERRL, EOMI. Absent: scleral icterus, conjunctival injection, periorbital swelling ENT exam: Present: normal exam, mucous membranes moist Neck exam: Present: normal inspection. Absent: tenderness, meningismus, lymphadenopathy Respiratory exam: Present: normal lung sounds bilaterally. Absent: respiratory distress, wheezes, rales, rhonchi, stridor Cardiovascular Exam: Present: regular rate, normal rhythm, normal heart sounds. Absent: systolic murmur, diastolic murmur, rubs, gallop, clicks GI/Abdominal exam: Present: soft, normal bowel sounds. Absent: distended, tenderness, guarding, rebound, rigid Extremities exam: Present: normal inspection, full ROM, normal capillary refill. Absent: tenderness, pedal edema, joint swelling, calf tenderness Back exam: Present: normal inspection Neurological exam: Present: alert, oriented X3, CN II-XII intact Psychiatric exam: Present: normal affect, normal mood Skin exam: Present: warm, dry, intact, normal color. Absent: rash <Prince Castaneda - Last Filed: 02/26/24 22:53> Course <Prince Castaneda - Last Filed: 02/26/24 22:53> Vital Signs 02/24/24 02/24/24 02/24/24 04:10 05:15 06:25 Temperature 97.5 F L Pulse Rate 78 70 71 Respiratory 18 16 14 Rate Blood Pressure 114/72 111/72 104/66 O2 Sat by Pulse 100 99 99 Oximetry 02/24/24 02/24/24 02/24/24 07:28 08:53 09:07 Temperature 97.9 F 98.4 F Pulse Rate 88 89 Respiratory 16 16 Rate Blood Pressure 119/78 126/68 O2 Sat by Pulse 100 7 L Oximetry - Reevaluation(s) Reevaluation #1: 02/24/24 06:31 Medical records reviewed (Prince Castaneda) Reevaluation #2: Patient symptoms improving (Prince Castaneda) Reevaluation #3: Patient informed of results and questions answered (Prince Castaneda) Reevaluation #4: Was pt. sent in by a medical professional or institution (LUISA Caldera, GENERALIST, urgent care, hospital, or assisted...) When possible be specific @ -no Did you speak to anyone other than the patient for history (EMS, parent, family, police, friend...)? What history was obtained from this source @ -no Did you review nursing and triage notes (agree or disagree)? Why? @ -agree Are old charts reviewed (outside hosp., previous admission, EMS record, old EKG, old radiological studies, urgent care reports/EKG's, assisted records)? Report findings @ -yes Differential Diagnosis (chest pain, altered mental status, abdominal pain women, abdominal pain men, vaginal bleeding, weakness, fever, dyspnea, syncope, headache, dizziness, GI bleed, back pain, seizure, CVA, palpatations, mental health, musculoskeletal)? @ -prior EKG interpreted by me (3pts min.). @ -yes X-rays interpreted by me (1pt min.). @ -no CT interpreted by me (1pt min.). @ -yes negative for acute disease U/S interpreted by me (1pt. min.). @ -no What testing was considered but not performed or refused? (CT, X-rays, U/S, labs)? Why? @ -none What meds were considered but not given or refused? Why? @ -none Did you discuss the management of the patient with other professionals (professionals i.e. Dr., PA, GENERALIST, lab, RT, psych nurse, child protective services social worker, deputy chief counsel, teacher, global chief creative officer, registered nurse hh case manager)? Give summary @ -no Was smoking cessation discussed for >3mins.? @ -no Was critical care preformed (if so, how long)? @ -yes31 Were there social determinants of health that impacted care today? How? (Homelessness, low income, unemployed, alcoholism, drug addiction, transportation, low edu. Level, literacy, decrease access to med. care, correction, rehab)? @ -none Was there de-escalation of care discussed even if they declined (Discuss DNR or withdrawal of care, Hospice)? DNR status @ -no What co-morbidities impacted this encounter? (DM, HTN, Smoking, COPD, CAD, Cancer, CVA, ARF, Chemo, Hep., AIDS, mental health diagnosis, sleep apnea, morbid obesity)? @ -none Was patient admitted / discharged? Hospital course, mention meds given and route, prescriptions, significant lab abnormalities, going to OR and other p ertinent info. @ -43 female with syncope for seizure-like activity. Undiagnosed new problem with uncertain prognosis? @ -no Drug Therapy requiring intensive monitoring for toxicity (Heparin, Nitro, Insulin, Cardizem)? @ -no Were any procedures done? @ -no Diagnosis/symptom? @ -Syncope Acute, or Chronic, or Acute on Chronic? @ -Acute Uncomplicated (without systemic symptoms) or Complicated (systemic symptoms)? @ -Complicated Side effects of treatment? @ -no Exacerbation, Progression, or Severe Exacerbation? @ -exacerbation Poses a threat to life or bodily function? How? (Chest pain, USA, CT, pneumonia, PE, COPD, DKA, ARF, appy, cholecystitis, CVA, Diverticulitis, Homicidal, Suicidal, threat to staff... and all critical care pts) @ -yes syncope because (Prince Castaneda) Reevaluation #5: M differential syncope (Prince Castaneda) EKG Findings - EKG Comments: EKG Findings:: EKG is sinus 86 CA 129 QRS 106 QTc 414 - EKG Results: EKG: interpreted by ERMD <Prince Castaneda - Last Filed: 02/26/24 22:53> Medical Decision Making - Lab Data Result diagrams: 02/24/24 05:10 02/24/24 05:10 <Rene Ortiz - Last Filed: 02/24/24 08:49> - Lab Data Result diagrams: 02/24/24 05:10 02/24/24 05:10 - Radiology Data Radiology results: report reviewed (CTA negative for PE CT PE CT abdomen pelvis positive for significant fibroid uterus), image reviewed <Prince Castaneda - Last Filed: 02/26/24 22:53> - Medical Decision Making 8:50 AM: Patient care signed out to me by previous shift physician, Dr. Flavio Rodas. Briefly patient is a 43-year-old female has history of large fibroid scheduled for hysterectomy soon. Currently patient had a syncopal episode in the bathroom on the ground at home by her confused unresponsive. She had unwitnessed fall. Patient has been having issues with bowel activity secondary to uterine fibroids. Plan at signout was to follow-up with pending images and lab testing. CT brain is negative. CT angio of the chest shows no blood clot or PE. No other findings. CT of the abdomen pelvis shows large fibroid along with some inflammatory colon. Laboratory evaluation obtained. Mild stress leukocytosis. D-dimer 2.09. Coag panel is negative. Rest of labs within acceptable limits except for TSH which is low. Patient notified of all her lab results. She states that she has good follow-up with her primary care doctor. Disposition options were discussed with patient. She would prefer to be discharged to follow-up with a primary care doctor. She states that she has a good relationship with her PCP and can get a timely appointment. Patient given return precautions agreeable to plan. Patient discharged. (Rene Ortiz) 43 female to the ER for evaluation patient presents today for evaluation of syncopal event (Prince Castaneda) - Lab Data Lab Results 02/24/24 02/24/24 02/24/24 Range/Units 05:10 05:10 05:10 WBC 14.3 H (3.8-10.6) k/uL RBC 4.31 (3.80-5.40) m/uL Hgb 13.8 (11.4-16.0) gm/dL Hct 42.0 (34.0-46.0) % MCV 97.5 (80.0-100.0) fL MCH 32.0 (25.0-35.0) pg MCHC 32.8 (31.0-37.0) g/dL RDW 13.9 (11.5-15.5) % Plt Count 331 (150-450) k/uL MPV 7.1 Neutrophils % 85 % Lymphocytes % 10 % Monocytes % 4 % Eosinophils % 0 % Basophils % 0 % Neutrophils # 12.1 H (1.3-7.7) k/uL Lymphocytes # 1.4 (1.0-4.8) k/uL Monocytes # 0.6 (0-1.0) k/uL Eosinophils # 0.1 (0-0.7) k/uL Basophils # 0.1 (0-0.2) k/uL PT 10.4 (10.0-12.5) sec INR 0.9 (<1.2) APTT 23.1 (22.0-30.0) sec D-Dimer 2.09 H (<0.60) mg/L FEU Sodium 134 L (137-145) mmol/L Potassium 3.6 (3.5-5.1) mmol/L Chloride 102 (98-107) mmol/L Carbon Dioxide 24 (22-30) mmol/L Anion Gap 8 mmol/L BUN 15 (7-17) mg/dL Creatinine 0.85 (0.52-1.04) mg/dL Est GFR (CKD-EPI)AfAm >90 (>60 ml/min/1.73 sqM) Est GFR (CKD-EPI)NonAf 85 (>60 ml/min/1.73 sqM) Glucose 134 H (74-99) mg/dL Plasma Lactic Acid Francisco (0.7-2.0) mmol/L Calcium 9.6 (8.4-10.2) mg/dL Phosphorus 3.7 (2.5-4.5) mg/dL Magnesium 2.0 (1.6-2.3) mg/dL Total Bilirubin 0.6 (0.2-1.3) mg/dL AST 30 (14-36) U/L ALT 18 (4-34) U/L Alkaline Phosphatase 48 (38-126) U/L Ammonia (<30) umol/L Troponin I (0.000-0.034) ng/mL NT-Pro-B Natriuret Pep 40 pg/mL Total Protein 7.6 (6.3-8.2) g/dL Albumin 4.8 (3.5-5.0) g/dL TSH <0.015 L (0.465-4.680) mIU/L Urine Color Urine Appearance (Clear) Urine pH (5.0-8.0) Ur Specific [place] (1.001-1.035) Urine Protein (Negative) Urine Glucose (UA) (Negative) Urine Ketones (Negative) Urine Blood (Negative) Urine Nitrite (Negative) Urine Bilirubin (Negative) Urine Urobilinogen (<2.0) mg/dL Ur Leukocyte Esterase (Negative) Urine HCG, Qual (Not Detectd) Serum Alcohol <10 mg/dL Blood Type Blood Type Confirm Blood Type Recheck Bld Type Recheck Status Antibody Screen Spec Expiration Date 02/24/24 02/24/24 02/24/24 Range/Units 05:10 05:10 05:15 WBC (3.8-10.6) k/uL RBC (3.80-5.40) m/uL Hgb (11.4-16.0) gm/dL Hct (34.0-46.0) % MCV (80.0-100.0) fL MCH (25.0-35.0) pg MCHC (31.0-37.0) g/dL RDW (11.5-15.5) % Plt Count (150-450) k/uL MPV Neutrophils % % Lymphocytes % % Monocytes % % Eosinophils % % Basophils % % Neutrophils # (1.3-7.7) k/uL Lymphocytes # (1.0-4.8) k/uL Monocytes # (0-1.0) k/uL Eosinophils # (0-0.7) k/uL Basophils # (0-0.2) k/uL PT (10.0-12.5) sec INR (<1.2) APTT (22.0-30.0) sec D-Dimer (<0.60) mg/L FEU Sodium (137-145) mmol/L Potassium (3.5-5.1) mmol/L Chloride (98-107) mmol/L Carbon Dioxide (22-30) mmol/L Anion Gap mmol/L BUN (7-17) mg/dL Creatinine (0.52-1.04) mg/dL Est GFR (CKD-EPI)AfAm (>60 ml/min/1.73 sqM) Est GFR (CKD-EPI)NonAf (>60 ml/min/1.73 sqM) Glucose (74-99) mg/dL Plasma Lactic Acid Francisco 1.3 (0.7-2.0) mmol/L Calcium (8.4-10.2) mg/dL Phosphorus (2.5-4.5) mg/dL Magnesium (1.6-2.3) mg/dL Total Bilirubin (0.2-1.3) mg/dL AST (14-36) U/L ALT (4-34) U/L Alkaline Phosphatase (38-126) U/L Ammonia <9 (<30) umol/L Troponin I <0.012 (0.000-0.034) ng/mL NT-Pro-B Natriuret Pep pg/mL Total Protein (6.3-8.2) g/dL Albumin (3.5-5.0) g/dL TSH (0.465-4.680) mIU/L Urine Color Urine Appearance (Clear) Urine pH (5.0-8.0) Ur Specific [place] (1.001-1.035) Urine Protein (Negative) Urine Glucose (UA) (Negative) Urine Ketones (Negative) Urine Blood (Negative) Urine Nitrite (Negative) Urine Bilirubin (Negative) Urine Urobilinogen (<2.0) mg/dL Ur Leukocyte Esterase (Negative) Urine HCG, Qual (Not Detectd) Serum Alcohol mg/dL Blood Type A Positive Blood Type Confirm Blood Type Recheck No Previous Record Bld Type Recheck Status CABO Indicated Antibody Screen NEGATIVE Spec Expiration Date 02/27/2024 - 231402/24/24 02/24/24 02/24/24 Range/Units 06:22 07:33 07:33 WBC (3.8-10.6) k/uL RBC (3.80-5.40) m/uL Hgb (11.4-16.0) gm/dL Hct (34.0-46.0) % MCV (80.0-100.0) fL MCH (25.0-35.0) pg MCHC (31.0-37.0) g/dL RDW (11.5-15.5) % Plt Count (150-450) k/uL MPV Neutrophils % % Lymphocytes % % Monocytes % % Eosinophils % % Basophils % % Neutrophils # (1.3-7.7) k/uL Lymphocytes # (1.0-4.8) k/uL Monocytes # (0-1.0) k/uL Eosinophils # (0-0.7) k/uL Basophils # (0-0.2) k/uL PT (10.0-12.5) sec INR (<1.2) APTT (22.0-30.0) sec D-Dimer (<0.60) mg/L FEU Sodium (137-145) mmol/L Potassium (3.5-5.1) mmol/L Chloride (98-107) mmol/L Carbon Dioxide (22-30) mmol/L Anion Gap mmol/L BUN (7-17) mg/dL Creatinine (0.52-1.04) mg/dL Est GFR (CKD-EPI)AfAm (>60 ml/min/1.73 sqM) Est GFR (CKD-EPI)NonAf (>60 ml/min/1.73 sqM) Glucose (74-99) mg/dL Plasma Lactic Acid Francisco (0.7-2.0) mmol/L Calcium (8.4-10.2) mg/dL Phosphorus (2.5-4.5) mg/dL Magnesium (1.6-2.3) mg/dL Total Bilirubin (0.2-1.3) mg/dL AST (14-36) U/L ALT (4-34) U/L Alkaline Phosphatase (38-126) U/L Ammonia (<30) umol/L Troponin I (0.000-0.034) ng/mL NT-Pro-B Natriuret Pep pg/mL Total Protein (6.3-8.2) g/dL Albumin (3.5-5.0) g/dL TSH (0.465-4.680) mIU/L Urine Color Colorless Urine Appearance Clear (Clear) Urine pH 5.5 (5.0-8.0) Ur Specific [place] 1.010 (1.001-1.035) Urine Protein Negative (Negative) Urine Glucose (UA) Negative (Negative) Urine Ketones 1+ H (Negative) Urine Blood Negative (Negative) Urine Nitrite Negative (Negative) Urine Bilirubin Negative (Negative) Urine Urobilinogen <2.0 (<2.0) mg/dL Ur Leukocyte Esterase Negative (Negative) Urine HCG, Qual Not Detected (Not Detectd) Serum Alcohol mg/dL Blood Type Blood Type Confirm A Positive Blood Type Recheck Bld Type Recheck Status Antibody Screen Spec Expiration Date Critical Care Time Critical Care Time: Yes Total Critical Care Time: 31 <Prince Castaneda - Last Filed: 02/26/24 22:53> Disposition Is patient prescribed a controlled substance at d/c from ED?: No Time of Disposition: 08:51 <Rene Ortiz - Last Filed: 02/24/24 08:49> <Prince Castaneda - Last Filed: 02/26/24 22:53> Clinical Impression: Syncope Disposition: HOME SELF-CARE Condition: Fair Instructions (If sedation given, give patient instructions): Syncope (ED) Additional Instructions: Follow-up with your primary care doctor regarding syncopal episode. You were notified of your results including low TSH levels along with inflammatory bowel findings on your CT. Follow-up with your primary care doctor. Referrals: Dane Israel MD [Primary Care Provider] - 1-2 days
[2024-02-24] MEDS: ONDANSETRON 4 MG/2 ML VIAL IVP STA (05:07)
[2024-02-24] MEDS: SODIUM CHLORIDE 0.9% 1,000 ML IV STA (05:07)
[2024-02-24 05:29] LABS: Basophils # (A) 0.1 k/uL (0-0.2); Basophils % (A) 0 %; Eosinophils # (A) 0.1 k/uL (0-0.7); Eosinophils % (A) 0 %; HGB 13.8 gm/dL (11.4-16.0); Lymphocytes # (A) 1.4 k/uL (1.0-4.8); Lymphocytes % (A) 10 %; MCHC 32.8 g/dL (31.0-37.0); MCV 97.5 fL (80.0-100.0); Mean Platelet Volume 7.1; Monocytes # (A) 0.6 k/uL (0-1.0); Monocytes % (A) 4 %; Neutrophils # (A) 12.1 k/uL (1.3-7.7); Neutrophils % (A) 85 %; Platelet Count 331 k/uL (150-450); RBC 4.31 m/uL (3.80-5.40); RDW 13.9 % (11.5-15.5); WBC 14.3 k/uL (3.8-10.6)
[2024-02-24 05:40] LABS: Lactic Acid, Venous 1.3 mmol/L (0.7-2.0)
[2024-02-24 05:42] LABS: ALT 18 U/L (4-34); AST 30 U/L (14-36); African American GFR (CKD) >90 (>60 ml/min/1.73 sqM); Albumin 4.8 g/dL (3.5-5.0); Alcohol <10 mg/dL; Alkaline Phosphatase 48 U/L (38-126); Anion Gap 8 mmol/L; Blood Urea Nitrogen 15 mg/dL (7-17); Calcium 9.6 mg/dL (8.4-10.2); Carbon Dioxide 24 mmol/L (22-30); Chloride 102 mmol/L (98-107); Glucose 134 mg/dL (74-99); Non-African American GFR(CKD) 85 (>60 ml/min/1.73 sqM); Phosphorus 3.7 mg/dL (2.5-4.5); Potassium 3.6 mmol/L (3.5-5.1); Sodium 134 mmol/L (137-145); Total Bilirubin 0.6 mg/dL (0.2-1.3); Total Protein 7.6 g/dL (6.3-8.2)
[2024-02-24 05:49] LABS: NT-Pro-B-Type Natriuretic Pept 40 pg/mL
[2024-02-24 05:54] LABS: INR 0.9 (<1.2); Partial Thromboplastin Time 23.1 sec (22.0-30.0); Prothrombin Time 10.4 sec (10.0-12.5)
[2024-02-24 07:37] VITALS: RESP 16
[2024-02-24 07:48] LABS: Appearance,Urine Clear (Clear); Bilirubin,Urine Negative (Negative); Blood,Urine Negative (Negative); Color,Urine Colorless; Glucose,Urine (UA) Negative (Negative); Ketones,Urine 1+ (Negative); Leukocyte Esterase,Urine Negative (Negative); Nitrite,Urine Negative (Negative); PH, Urine 5.5 (5.0-8.0); Protein,Urine Negative (Negative); Urobilinogen,Urine <2.0 mg/dL (<2.0)
--- NOTE | 2024-02-24 08:13 | CT ---
EXAMINATION TYPE: CT brain cspine wo con DATE OF EXAM: 02/24/2024 COMPARISON: Brain 01/04/2022 HISTORY: 43-year-old female confusion, PE, AMS CT DLP: 1306.5 mGycm Automated exposure control for dose reduction was used. Technique: Examination of the head was done in axial plane without intravenous contrast. Coronal and sagittal reconstructions performed. CT of the cervical spine was obtained in axial plane without intravenous injection of contrast mater ial. Coronal and sagittal reformatted images were obtained from the axial views for evaluation of f ractures, spinal alignment and canal. FINDINGS: Head: There is no evidence of acute intracranial hemorrhage, acute ischemic changes, mass, mass-effect, or extra-axial fluid collection. There is no effacement of cerebral sulci or basal subarachnoid cister ns. There is no hydrocephalus. There is no midline shift. Henderson-white matter distinction is preserv ed. Leftward nasal septal deviation. Paranasal sinuses well pneumatized. Small amount of fluid inferior l eft mastoid air cells. Orbits and globes appear intact. Cervical spine: No craniocervical junction abnormality, predental space widening, or prevertebral soft tissue swellin g. Moderate disc/endplate degenerative change from C5 through C7 levels. Disc osteophyte complexes at th nyasia levels may contribute to moderate spinal canal stenosis with AP canal dimension narrowing down to 6 mm. Scattered mild facet and uncovertebral joint arthropathy is present. There is straightening of the normal cervical lordosis but preserved alignment. No acute fracture seen of the cervical spine. Moderate bilateral neuroforaminal stenosis at C5-C6 and C6-C7. Sagittal and coronal reformatted images confirm above findings. COMBINED IMPRESSION: 1. No acute intracranial abnormality seen. 2. No acute fracture or malalignment of the cervical spine. 3. Moderate spondylotic change C5-C7 levels possibly with moderate spinal canal stenoses here along w ith moderate bilateral neuroforaminal stenoses. 4. Small amount of fluid inferior left mastoid air cells. Correlate for any mastoid pain to exclude m astoiditis.
--- NOTE | 2024-02-24 08:33 | CT ---
EXAMINATION TYPE: CT angio chest, CT abdomen pelvis w con DATE OF EXAM: 02/24/2024 COMPARISON: Pelvic ultrasound 12/07/2023 HISTORY: 43-year-old female shortness of breath, confusion, AMS (accession [id number]), PE, AMS (access ion [id number]) TECHNIQUE: Contiguous axial scanning of the chest after the administration of 100 ml mL of Isovue 370 . Coronal/sagittal MIP reconstructions performed. Subsequently scanning of the abdomen and pelvis wi th contrast. Delayed images of the kidneys and coronal/sagittal reconstructions performed. CT DLP: 633.7mGycm. Automatic exposure control utilized for a dose reduction. FINDINGS: Chest: Heart is normal size without pericardial effusion. No flattening of the interventricular septum. Mini mal refluxing contrast into the hepatic veins. Aorta normal caliber with conventional arch vessel branching anatomy. Minimal residual thymic tissue anterior mediastinum. Dominant but nonenlarged 6 mm right hilar lymph node. No thoracic lymphadenopathy by CT size criteria. Satisfactory opacification of the pulmonary arterial system. No pulmonary embolus is visualized No consolidation or pleural effusion. ABDOMEN: No focal liver lesion or biliary ductal dilatation. Portal venous system is patent. Gallbladder, adrenal glands, kidneys, spleen, and pancreas within normal limits. Tiny hiatal hernia. No dilated small bowel or free air. No mesenteric or retroperitoneal adenopathy. Prominent fluid-filled small bowel loops throughout the abdomen and liquid stool within the right gabby e of the colon. There is concurrent circumferential long segment wall thickening involving the transv erse, descending, sigmoid colon. Moderate circumferential wall thickening is present along the descen ding colon. No pericolonic inflammatory change. Normal appendix. Pelvis: There is a left lower quadrant mesenteric mass that shows heterogeneous enhancement measuring 9.0 x 5 .5 cm and extending from the left uterine fundus. Unclear if this represents a pedunculated fibroid o r left ovarian etiology. The former is favored as there is possible visualization of the left ovary s eparately, axial image 63. There is a recently ruptured follicle or functional cyst of the right ovar y measuring 1.1 cm. Bulky fibroid uterus. Anterior fundal fibroid measures 5.6 cm. Right posterior ut erine body fibroid measures 3.0 cm. Smaller mid fundal fibroid measures 2.4 cm. Possible large Scattered mild free fluid. A tampon is present. No pelvic lymphadenopathy. Bones: Lateral L5 pars defects with grade 1 anterolisthesis L5-S1. No osseous destructive process. IMPRESSION: Chest: 1. No evidence for pulmonary embolus. 2. No acute pulmonary process seen. Abdomen pelvis: 3. Mild to moderate circumferential long segment colonic wall thickening especially involving the tra nsverse colon and left side of the colon. Consider a nonspecific infectious or inflammatory colitis. No abscess or free air. 4. Mild free fluid probably reactive or in part physiologic. 5. Bulky fibroid uterus. There is also a left lower quadrant mass measuring 9.0 x 5.5 cm. In light of the pelvic ultrasound findings of 12/07/2023, we suspect a large pedunculated fibroid rather than a l eft ovarian mass. Recommend [employer] referral for further follow-up. 6. Bilateral L5 pars defects with grade 1 anterolisthesis at L5-S1. 7. Tiny hiatal hernia.
[2024-02-24 08:56] VITALS: BP 126/68; PULSE 89
[2024-02-24 09:10] VITALS: TEMP 98.4
== END 2024-02-24 09:17 | disposition home or self-care (01) ==
LOC: EC 04:00
CPT/HCPCS: 36415; 70450; 71275; 72125; 74177; 80053; 80320; 81003; 81025; 82140; 83605; 83735; 83880; 84100; 84443; 84484; 85025; 85379; 85610; 85730; 86850; 86900; 86901; 93005; 96361; 96374; 99291

== ENCOUNTER → 2024-02-27 | Outpatient (CLI) | payer MEDICAID ==
[2024-02-27 18:20] LABS: Basophils # (A) 0.05 X 10*3/uL (0.00-0.10); Basophils % (A) 0.8 %; Eosinophils # (A) 0.17 X 10*3/uL (0.04-0.35); Eosinophils % (A) 2.6 %; HCT 33.7 % (37.2-46.3); Lymphocytes # (A) 2.27 X 10*3/uL (0.90-5.00); Lymphocytes % (A) 34.1 %; MCH 32.1 pg (27.0-32.0); MCHC 32.6 g/dL (32.0-37.0); MCV 98.3 FL (80.0-97.0); Mean Platelet Volume 9.6 FL (9.5-12.2); Monocytes # (A) 0.54 X 10*3/uL (0.20-1.00); Monocytes % (A) 8.1 %; NRBC Per 100 WBC 0 X 10*3/uL (0.00-0.01); Neutrophils # (A) 3.61 X 10*3/uL (1.80-7.70); Neutrophils % (A) 54.1 %; Platelet Count 284 X 10*3/uL (140-440); RBC 3.43 X 10*6/uL (4.10-5.20); RDW 13.4 % (11.5-14.5); WBC 6.66 X 10*3/uL (4.50-10.00)
[2024-02-27 19:19] LABS: Blood Urea Nitrogen 19.4 mg/dL (9.0-27.0); Carbon Dioxide 26.1 mmol/L (21.6-31.8); Chloride 101 mmol/L (96-109); Glucose 91 mg/dL (70-110); Potassium 3.7 mmol/L (3.5-5.5); Sodium 138 mmol/L (135-145)
== END | disposition home or self-care (01) ==
LOC: LABWHC1 15:11
PROVIDERS: ATTEND Obstetrics & Gynecology Obstetrics
DX: Z01.812 Encounter for preprocedural laboratory examination (principal)
CPT/HCPCS: 80051; 82565; 82947; 84520; 85025; 86850; 86900; 86901; 87077; 87086; 87186

== ENCOUNTER 2024-03-05 05:49 | Day surgery (SDC) | payer MEDICAID ==
[2024-02-27 15:40] VITALS: BMI 21.4
[2024-03-05] MEDS ORDERED: HYDROmorphone 0.5 MG/0.5 ML SYRINGE IVP PRN (06:13)
[2024-03-05] MEDS: ONDANSETRON 4 MG/2 ML VIAL IVP ONE (06:41)
[2024-03-05] MEDS: DEXAMETHASONE SOD PHOSPHATE 4 MG/ML 1 ML VIAL IV ONE (06:41)
[2024-03-05] MEDS: MIDAZOLAM 2 MG/2 ML VIAL IV ONE (06:57)
[2024-03-05] MEDS: diphenhydrAMINE 50 MG/ML 1 ML VIAL IVP PRN (07:09)
[2024-03-05] MEDS: LACTATED RINGERS 1,000 ML IV SCH (07:14)
[2024-03-05] MEDS: IV FLUID CONTINUATION 1,000 ML IV ONE (07:15)
[2024-03-05] MEDS ORDERED: GLYCOPYRROLATE 0.2 MG/ML 2 ML VIAL ONE (07:26)
[2024-03-05] MEDS ORDERED: ACETAMINOPHEN IV (For NPO) 1,000 MG/100 ML VIAL ONE (07:26)
[2024-03-05] MEDS ORDERED: PHENYLEPHRINE 10 MG/ML VIAL ONE (07:26)
[2024-03-05] MEDS ORDERED: MORPHINE SULFATE (PF) 0.3 MG/0.3 ML SYR ONE (07:26)
[2024-03-05] MEDS ORDERED: SUCCINYLCHOLINE CHLORIDE 200 MG/10 ML VIAL IV ONE (07:26)
[2024-03-05] MEDS ORDERED: fentaNYL (PF) 50 MCG/ML 2 ML AMP ONE (07:26)
[2024-03-05] MEDS ORDERED: NEOSTIGMINE 1 MG/ML 10 ML VIAL ONE (07:26)
[2024-03-05] MEDS ORDERED: LIDOCAINE 1% INJ 10MG/ML (20 ML MDV) ONE (07:26)
[2024-03-05] MEDS ORDERED: ROCURONIUM 10 MG/ML (5 ML VIAL) IV ONE (07:26)
[2024-03-05] MEDS ORDERED: PROPOFOL 10 MG/ML 20 ML VIAL IV ONE (07:26)
[2024-03-05] MEDS ORDERED: NALBUPHINE 10 MG/ML (10 ML MDV) ONE (07:26)
[2024-03-05] MEDS: BUPIVACAINE (PF) 0.25% 30 ML VIAL SQ ONE ×2 (08:04→09:45)
[2024-03-05] MEDS: LACTATED RINGERS 1,000 ML IV ONE (08:30)
[2024-03-05] MEDS ORDERED: SIMETHICONE 80 MG CHEWABLE PO PRN (10:00)
[2024-03-05] MEDS ORDERED: Acetaminophen-Codeine 300-30mg TAB PO PRN ×2 (10:00)
--- NOTE | 2024-03-05 10:08 | P.OP ---
Date of Procedure: 03/05/24 Preoperative Diagnosis: Enlarged uterus, uterine fibroids, dysfunctional uterine bleeding, pelvic pain Postoperative Diagnosis: Same Procedure(s) Performed: Robotic assisted vaginal hysterectomy, bilateral salpingectomy, diagnostic cystoscopy, myomectomy Anesthesia: TRISH Surgeon: Parul Baltazar Shingle Bolt Cutter #1: Helga Robbins Estimated Blood Loss (ml): 50 IV fluids (ml): 900 Urine output (ml): 200 Pathology: other (Uterus and cervix multiple fibroids, bilateral fallopian tubes) Condition: stable Disposition: PACU Indications for Procedure: Noted enlarged uterus on ultrasound with multiple fibroids, largest measuring greater than 6 cm. Dysfunctional uterine bleeding, heavy menstrual bleeding Operative Findings: Grossly enlarged uterus with left lateral large fibroid, posterior cul-de-sac filled with fibroid, normal appendix visualized, normal ovaries bilaterally. Description of Procedure: Patient was taken back to operating room where general anesthesia was obtained without difficulty by the anesthesia department. She was prepped and draped in normal sterile fashion in the dorsolithotomy position. The Vallejo catheter was placed under sterile technique. A weighted speculum is placed in the posterior vaginal vault the anterior lip of the cervix was visualized and grasped with a single-tooth tenaculum the endocervical canal was then serially dilated and a Vcare uterine ablator was placed. The cervical cap was placed likely against the cervix the balloon was insufflated with air and all instruments removed from the patient's vaginal vault. Attention then turned to the patient's abdomen where approximately 2 fingerbreadths above the umbilicus a small skin incision is made. Through this incision the Veress needle is placed, once the Veress needle was deemed to be in the appropriate position with a drop of CO2 pressure with the insufflation of CO2 gas CO2 insufflation was allowed to occur. An 8 mm trocar and sleeve with the laparoscope in place was placed through the skin incision and toward the pneumoperitoneum. The above-noted findings were visualized. The additional port sites were then placed 10 cm lateral and 3 cm inferior to the midline port these are 8 mm ports and placed under direct visualization. In the left upper quadrant 12 mm trocar and sleeve was placed under direct visualization. At this time the da Debbi was docked in the usual fashion. In the right operative arm the monopolar scissors is placed in the left operative arm the bipolar forceps is placed. The uterus was elevated and the large left lateral fibroid was noted to be pedunculated in nature the stalk was coagulated and transected with good hemostasis appreciated. This fibroid was then placed in the upper abdomen once free from its pedicle. The left fallopian tube was elevated and the mesosalpinx was coagulated and transected to the level of the utero-ovarian ligament. The utero-ovarian ligament was coagulated distally proximally divided. The round ligament was visualized coagulated and transected. The bladder flap from the left was then created using sharp and blunt dissection. Attention was then turned to the patient's right adnexa. The right fallopian tube was elevated and the mesosalpinx was coagulated and transected to the level of the utero-ovarian ligament. The utero-ovarian ligament was coagulated distally proximally divided. This continued through the broad and toward the round which was coagulated and transected. The bladder flap from the right was then created using sharp and blunt dissection. The ascending branch of the uterine artery from the right was visualized and transected. This was then repeated on the opposite side with good hemostasis noted bilaterally. At this time the only remaining attachment was a vaginal attachment therefore colpotomy incision was made in a circumferential fashion. The uterus was then free from its vaginal attachment. Multiple fibroids were then transected from the uterus and placed in Endo Catch bags. These were removed through the vaginal opening. The large lateral fibroid was then cut into 3 pieces placed in bags and removed without diffic ulty. The pelvis was then copiously irrigated. The vaginal cuff was noted to be hemostatic. The cuff was then closed with 0 Vicryl in a [id number] fashion. 4 sutures were used used to obtain closure. Hemostasis was noted over the vaginal cuff. All counts noted be correct x 2 at the end of the procedure. Patient tolerated procedure well and was taken the recovery room awake in stable condition.
[2024-03-05] MEDS: IBUPROFEN IV 800 MG in SODIUM CHLORIDE 0.9% 250 ML IV ONE (15:16)
[2024-03-05] MEDS: ACETAMINOPHEN IV (For NPO) 1,000 MG in EMPTY BAG 1 BAG IVPB ONE (18:17)
[2024-03-05] MEDS: IBUPROFEN 600 MG TAB PO PRN (20:55)
[2024-03-05] MEDS: SENNOSIDES-DOCUSATE SODIUM 1 EACH TAB PO SCH (20:55)
[2024-03-05] MEDS: ATORVASTATIN 40 MG TAB PO SCH (20:55)
[2024-03-05] MEDS: ASPIRIN 81 MG PO SCH (20:55)
[2024-03-05] MEDS: amLODIPine 10 MG TAB PO SCH (20:56)
[2024-03-05] MEDS ORDERED: PANTOPRAZOLE 40 MG TABLET PO SCH (21:00)
[2024-03-06] MEDS: ACETAMINOPHEN TAB 325 MG TAB PO PRN (00:03)
[2024-03-06 00:16] VITALS: RESP 16
--- NOTE | 2024-03-06 06:14 | P.PN ---
Progress Note - Text Progress Note Date: 03/06/24 Renee was seen today in the [facility] birthing place. She was resting comfortably and was asleep. Her pain overnight has been well controlled. She has used ibuprofen and acetaminophen this morning. No other narcotics. No lower extremity weakness numbness tingling. Patient was really sleepy and answered questions briefly. Please alert the anesthesiologist production dispatcher with any questions or concerns moving forward Chelsey Lawler MD
[2024-03-06 07:00] LABS: Basophils % (A) 0 %; Eosinophils % (A) 0 %; HCT 29.4 % (34.0-46.0); Lymphocytes % (A) 20 %; MCHC 33.6 g/dL (31.0-37.0); MCV 98.1 fL (80.0-100.0); Mean Platelet Volume 7.7; Monocytes # (A) 0.6 k/uL (0-1.0); Monocytes % (A) 6 %; Neutrophils # (A) 7.4 k/uL (1.3-7.7); Neutrophils % (A) 72 %; Platelet Count 216 k/uL (150-450); WBC 10.2 k/uL (3.8-10.6)
[2024-03-06 07:03] LABS: HGB 9.9 gm/dL (11.4-16.0)
[2024-03-06] MEDS: lisinopriL 20 MG TAB PO SCH (09:14)
[2024-03-06 09:24] VITALS: BP 88/55; PULSE 76; TEMP 98.3
[2024-03-06] MEDS ORDERED: ACETAMINOPHEN TAB 325 MG TAB PO PRN (10:02)
--- NOTE | 2024-03-06 13:00 | P.DS ---
Providers Date of admission: 03/05/2024 Expected date of discharge: 03/06/24 Attending physician: Parul Baltazar Primary care physician: Dane Israel MD - Discharge Diagnosis(es) (1) Enlarged uterus Current Visit: Yes Status: Acute (2) Fibroid Current Visit: Yes Status: Acute (3) DUB (dysfunctional uterine bleeding) Current Visit: Yes Status: Acute (4) Pelvic pain Current Visit: Yes Status: Acute Hospital Course: 43 yo female that presented to [facility] for scheduled RAVH/ Bilateral salpingectomy diagnostic cystoscopy. She has a known enlarged uterus with multiple fibroids. She has been struggling with irregular menses that have been heavy in nature. she states she underwent US evaluation revealing an enlarged uterus of 12 cm, pedunculated lateral fibroid appreciated approximately 6 cm in size. multiple other fibroids were appreciated anterior and lateral on US. Patient desired definitive treatment and was counseled on robotic assisted vaginal hysterectomy with ovarian conservation. Patient underwent robotic assisted vaginal hysterectomy with bilateral salpingectomy, diagnostic cystoscopy. Patient did well during surgery for full details on the surgery please see the dictated operative report. Patient's postoperative course has been uneventful. In this postoperative day #1 she is ambulating and voiding without difficulty. She is tolerating a regular diet without nausea or vomiting. States her pain is well-controlled. She would like discharge home today. Patient Condition at Discharge: Good Plan - Discharge Summary Discharge Rx Participant: Yes New Discharge Prescriptions: No Action Aspirin 81 mg PO DAILY 30 Days #30 tab Atorvastatin [Lipitor] 40 mg PO HS 30 Days #30 tab amLODIPine [Norvasc] 10 mg PO HS lisinopriL [Zestril] 20 mg PO QAM Omeprazole [PriLOSEC] 40 mg PO HS Discharge Medication List Aspirin 81 mg PO DAILY 30 Days #30 tab 01/06/22 [Rx] Atorvastatin [Lipitor] 40 mg PO HS 30 Days #30 tab 01/06/22 [Rx] Omeprazole [PriLOSEC] 40 mg PO HS 02/27/24 [History] amLODIPine [Norvasc] 10 mg PO HS 02/27/24 [History] lisinopriL [Zestril] 20 mg PO QAM 02/27/24 [History] Follow up Appointment(s)/Referral(s): Parul Baltazar DO [Doctor of Osteopathic Medicine] - 2 Weeks Activity/Diet/Wound Care/Special Instructions: No intercourse, tampons or tub baths. No heavy lifting greater than a gallon of milk. No driving for two weeks. Call with any fever, shakes or chills, with any pain not alleviated by over the counter meds, or with any questions or concerns. The counter ibuprofen 600 mg or 3 tablets every 6 hours as needed for pain. Discharge Disposition: HOME SELF-CARE
== END 2024-03-06 13:41 | disposition home or self-care (01) ==
LOC: OR 05:49 → 4FBP 10:33 → OR 03-06 13:41
PROVIDERS: ATTEND Obstetrics & Gynecology Obstetrics
DX: D25.1 Intramural leiomyoma of uterus (principal); I10 Essential (primary) hypertension; E78.5 Hyperlipidemia, unspecified; K21.9 Gastro-esophageal reflux disease without esophagitis; Z79.82 Long term (current) use of aspirin; Z79.899 Other long term (current) drug therapy
CPT/HCPCS: 58552; S2900; 81025; 85025; 88307

== ENCOUNTER 2024-06-05 06:10 | Day surgery (SDC) | payer MEDICAID ==
[2024-06-01 14:51] VITALS: BMI 21.4
[2024-06-05] MEDS ORDERED: LIDOCAINE 1% (10MG/ML) FOR IV START INTRADERMA PRN (06:15)
[2024-06-05] MEDS: IV FLUID CONTINUATION 1,000 ML IV ONE (06:30)
[2024-06-05] MEDS: LACTATED RINGERS 1,000 ML IV SCH (06:30)
[2024-06-05 06:31] VITALS: TEMP 98.4
[2024-06-05] MEDS ORDERED: PROPOFOL 10 MG/ML 20 ML VIAL IV ONE (07:00)
[2024-06-05] MEDS ORDERED: LIDOCAINE 1% INJ 10MG/ML (20 ML MDV) ONE (07:00)
--- NOTE | 2024-06-05 07:24 | P.PCN ---
Date of Procedure: 06/05/24 Procedure(s) Performed: BRIEF HISTORY: Patient is a 43-year-old pleasant white female scheduled for an elective colonoscopy as a part of abdominal CAT scan of the abdomen that showed thickening of the transverse colon and descending colon. Patient is asymptomatic.. PROCEDURE PERFORMED: Colonoscopy. PREOPERATIVE DIAGNOSIS: Abnormal CAT scan of the abdomen. IV sedation per Anesthesia. PROCEDURE: After informed consent was obtained, the patient, was brought into the endoscopy unit. IV sedation was administered by Anesthesia under continuous monitoring. Digital rectal examination was normal. Initially the Olympus CF-160 flexible video colonoscope was then inserted in the rectum, gradually advanced into the cecum without any difficulty. Careful examination was performed as the scope was gradually being withdrawn. Ileocecal valve and the appendiceal orifice were visualized and appeared normal. Prep was excellent. Mucosa of the cecum, ascending colon, transverse colon, descending colon, sigmoid colon, and rectum appeared normal. Retroflexion was performed in the rectum and no lesions were seen. The patient tolerated the procedure well. IMPRESSION: Normal-appearing colon from rectum to cecum no evidence of colorectal neoplasia. RECOMMENDATIONS: Findings of this examination were discussed with the patient as well as her family. She was advised to have repeat screening colonoscopy in 10 years.
[2024-06-05 07:50] VITALS: BP 123/77; PULSE 67; RESP 17
== END 2024-06-05 07:57 | disposition home or self-care (01) ==
LOC: ORWHC2ENDO 06:10
PROVIDERS: ATTEND Internal Medicine Gastroenterology
DX: K21.9 Gastro-esophageal reflux disease without esophagitis (principal); I10 Essential (primary) hypertension; E78.5 Hyperlipidemia, unspecified; I67.9 Cerebrovascular disease, unspecified; Z79.02 Long term (current) use of antithrombotics/antiplatelets; Z79.899 Other long term (current) drug therapy
CPT/HCPCS: 45378; J2003; J2704

== ENCOUNTER → 2025-01-14 | Outpatient (CLI) | payer MEDICAID ==
--- NOTE | 2025-01-14 08:33 | MM ---
Reason for Exam: Screening (asymptomatic). Last mammogram was performed 1 year(s) and 2 month(s) ago. Patient History: Menarche at age 12. Patient has no children. Hysterectomy at age 43. Premenopausal. Estrogen for 2 years from age 33 until age 35. Paternal grandmother had ovarian cancer, age 50. Risk Values: Chelita 5 year model risk: 0.9%. NCI Lifetime model risk: 10.7%. Prior Study Comparison: 09/23/2021 Bilateral Screening Mammogram, [facility]. 10/28/2022 Bilateral MG 3D screening mammo w/cad, [facility]. 11/08/2023 Bilateral MG 3D screening mammo w/cad, [facility]. Tissue Density: The breasts are heterogeneously dense, which may obscure small masses. Findings: Analyzed By CAD. There is no suspicious group of microcalcifications or new suspicious mass in either breast. Overall Assessment: Negative, BI-RAD 1 Management: Screening Mammogram of both breasts in 1 year. Patient should continue monthly self-breast exams. A clinical breast exam by your physician is recommended on an annual basis. This exam should not preclude additional follow-up of suspicious palpable abnormalities. Note on Chelita scores and lifetime risk: 1. A Chelita score greater than 3% is considered moderate risk. If this is the case, consider specialist referral to assess eligibility for a risk reducing agent. 2. If overall lifetime risk for the development of breast cancer is 20% or higher, the patient may qualify for future screening with alternating mammogram and breast MRI. [facility], , 01/14/2025 8:30 AM. Electronically signed and approved by: Annalee Reardon M.D. Radiologist
== END | disposition home or self-care (01) ==
LOC: RADMAMWWP 06:57
PROVIDERS: ATTEND Obstetrics & Gynecology
DX: Z12.31 Encounter for screening mammogram for malignant neoplasm of breast (principal); R92.333 Mammographic heterogeneous density, bilateral breasts
CPT/HCPCS: 77063; 77067